=== PATIENT | male | born 1970 | race Caucasian/White ===

== ENCOUNTER → 2016-05-27 | Day surgery (SDC) | payer OTHER ==
[~2016-05-27] MED LIST: BUPIVACAINE/EPINEPHRINE 0.5% PF 30 ML VIAL ONE; CARA1TAB6 PO; DOXY100C PO; ESCI20TA PO; GABA600T PO; GLIP10TA6 PO; LACTATED RINGER'S 1000 ML INJ 1,000 ML ONE; LANTUS2P SQ; LOSA100T PO; MIDAZOLAM HCL 2 MG/2 ML VIAL ONE; MORPHINE SULFATE 4 MG/ML INJ ONE; PANT40TA3 PO; PROPOFOL 200 MG/20 ML AMP IV ONE; ROPI0.25 PO; VESI5TAB PO; VITA20003 PO; ceFAZolin 2 GM PREMIX 50 ML ONE; oxyCODONE/ACETAMINOPHEN 5 MG/325 MG TAB ONE
--- NOTE | 2016-05-27 14:20 | MP ---
cc: JAS ADAM M.D. DATE OF SURGERY: 05/27/2016 PREOPERATIVE DIAGNOSIS Right ankle medial dome talar lesion with cartilaginous delamination. PROCEDURE Right ankle extensive debridement and microfracture talar dome lesion. ANESTHESIA General. SURGEON Jas Adam MD INTERN RETAIL SURGEON STACI Alvares ESTIMATED BLOOD LOSS Minimum. DRAIN None. SPECIMEN Fragments discarded. COMPLICATIONS None known. INDICATIONS Dayday Peck is an adult male with persistent right ankle pain and disability. He has failed conservative management which reveals delaminated cartilage on the medial dome of the talus. The risks, benefits and alternatives to treatment were thoroughly discussed and detailed informed consent was obtained. The medical assistant ob gyn is Darrell Thomas, advanced registered nurse practitioner. His skill set was medically necessary. He assisted with of the limb through the operation holding of the arthroscope and the arthroscopic equipment and fine-tune the plantar flexion of the foot and his skill set was medically necessary for the performance of the operation. PROCEDURE The patient was brought to the operating room and placed under general anesthetic. Right lower extremity was draped and prepped in usual sterile fashion. IV antibiotics were given. Time-out was completed. We had a tourniquet just above the knee, which we did not use but used it as traction as the tourniquet mclean was placed tight. We prepped and draped the ankle in the usual sterile fashion. IV antibiotics were given. Time-out was completed. We used the Arthrex ankle distractor to distract the ankle. We injected Marcaine with epinephrine within the ankle joint and around the planned portals. Then proceeded with our inferolateral portal. It was necessary to use the small joint scope, this was introduced. There was some hypertrophic synovial tissue joint which was debrided. We used two different dara, one was a 3-0 shaver and one was a curved 4-0 shaver. We noted some fraying on the anterior edge of the distal tibia and this was smoothed and contoured and this gave visualization of the joint and the lateral gutter appeared normal. The medial gutter showed delaminated cartilage on the medial edge and in consistence with the MRI findings. A probe lifted the delaminated cartilage up and then we proceeded to use the shaver to remove a portion of this cartilage and then used the arthroscopic curette, angle curettes, regular curette, OB curette to remove delaminated cartilage and then shaved the bone and then used the microfracture awl and it looked slightly large, so then we used a 0.45 drill to make drill holes in the dome and we had firm edges of cartilage. We thoroughly irrigated out the ankle for removal of loose bodies. We took our final photographs of the lesion and photographed from the lateral side and then followed the drill holes, photographed on the medial side. Repeat diagnostic arthroscopy revealed no loose bodies. Arthroscopic equipment was removed. Marcaine had been injected about the portals. 4-0 Nylon suture was used. The patient was awoken and returned to the recovery room in stable condition. MD PRABHJOT Tavares/ELZBIETA /11:09 AM /2:19 PM
== END | disposition home or self-care (01) ==
LOC: ESDC 08:10
PROVIDERS: ATTEND Orthopaedic Surgery Sports Medicine
DX: M93.271 Osteochondritis dissecans, right ankle and joints of right foot (principal); M25.571 Pain in right ankle and joints of right foot; E11.9 Type 2 diabetes mellitus without complications; Z79.4 Long term (current) use of insulin
CPT/HCPCS: 01464; 29891; 82948; J0690; J2250; J2270; J3010; J7120

== ENCOUNTER 2016-12-08 16:55 | Emergency (ER) | payer OTHER ==
[~2016-12-08 16:55] MED LIST changes: -BUPIVACAINE/EPINEPHRINE 0.5% PF 30 ML VIAL ONE; -DOXY100C PO; -GLIP10TA6 PO; -LACTATED RINGER'S 1000 ML INJ 1,000 ML ONE; -MIDAZOLAM HCL 2 MG/2 ML VIAL ONE; -MORPHINE SULFATE 4 MG/ML INJ ONE; -PROPOFOL 200 MG/20 ML AMP IV ONE; -ceFAZolin 2 GM PREMIX 50 ML ONE; -oxyCODONE/ACETAMINOPHEN 5 MG/325 MG TAB ONE
[2016-12-08 16:58] VITALS: BP 147/84; PULSE 76; RESP 17; TEMP 98.4; O2SAT 98
[2016-12-08] MEDS ORDERED: SODIUM CHLOR 0.9% 1000 ML INJ 1,000 ML IV ONE (17:11)
[2016-12-08] MEDS ORDERED: LANTUS2P SQ (17:14)
--- NOTE | 2016-12-08 17:18 | PD ---
HPI Chief Complaint: Syncope/Near-Syncope Time Seen by Provider: 17:11 Travel History International Travel<30 days: No Contact w/Intl Traveler<30days: No Traveled to known affect area: No History of Present Illness HPI WHILE PATIENT WAS CELEBRATING HIS KIDS BIRTHDAY AT AN [employer] WHILE SITTING FELT LIGHTHEADED/DIZZY THEN PASSED OUT, PER AND KIDS NO SEIZURE ACTIVITY, UPON AWAKENING WITHIN SECONDS LATER, PT HAD WELSH. PCP:MAIK PEREZ PMHX: DM ,HTN, HI CHOL, SLEEP APNEA, RESTLESS LEG SYNDROME PSHX: COLON RESECTION WITH TAKEDOWN, GB, APPY, HERNIA PFSH Past Medical History High Cholesterol: Yes Diabetes: Yes Patient Takes Glucophage: No Diminished Hearing: No Hypertension: Yes Sleep Apnea: Yes Tetanus Vaccination: < 5 Years Influenza Vaccination: No Past Surgical History Abdominal Surgery: Yes (COLON RESECTION FOR DESTENTION AND POLYPS ) Appendectomy: Yes Cholecystectomy: Yes Social History Alcohol Use: No Tobacco Use: No Substance Use: No Allergies-Medications (Allergen,Severity, Reaction): Coded Allergies: No Known Allergies (Unverified , 12/08/16) Reported Meds & Prescriptions Reported Meds & Active Scripts Active Naproxen EC (Naproxen) 375 Mg Tabdr 375 Mg PO BID Flexeril (Cyclobenzaprine HCl) 10 Mg Tab 10 Mg PO TID Vesicare (Solifenacin) 5 Mg Tab 5 Mg PO DAILY Reported Lantus Inj (Insulin Glargine) 1,000 Unit/10 Ml Vial 52 Units SQ DAILY Pantoprazole (Pantoprazole Sodium) 40 Mg Tab 40 Mg PO DAILY Vitamin D (Cholecalciferol) 2,000 Unit Tab 2,000 Tab PO BID Escitalopram (Escitalopram Oxalate) 20 Mg Tab 20 Mg PO DAILY Ropinirole 0.25 Mg Tab 0.25 Mg PO ONCE Losartan (Losartan Potassium) 100 Mg Tab 100 Mg PO DAILY Lantus Inj (Insulin Glargine) 1,000 Unit/10 Ml Vial 25 Units SQ HS Gabapentin 600 Mg Tab 600 Mg PO BID Review of Systems Except as stated in HPI: all other systems reviewed are Neg HENT: Positive: Lightheadedness Neurologic: Positive: Dizziness Physical Exam Narrative GENERAL: SKIN: Warm and dry. HEAD: Atraumatic. Normocephalic. EYES: Pupils equal and round. No scleral icterus. No injection or drainage. ENT: No nasal bleeding or discharge. Mucous membranes pink and moist. NECK: Trachea midline. No JVD. CARDIOVASCULAR: Regular rate and rhythm. RESPIRATORY: No accessory muscle use. Clear to auscultation. Breath sounds equal bilaterally. GASTROINTESTINAL: Abdomen soft, non-tender, nondistended. MUSCULOSKELETAL: Extremities without clubbing, cyanosis, or edema. No obvious deformities. NEUROLOGICAL: Awake and alert. No obvious cranial nerve deficits. Motor grossly within normal limits. Five out of 5 muscle strength in the arms and legs. Normal speech. PSYCHIATRIC: Appropriate mood and affect; insight and judgment normal. Data Data Last Documented VS Vital Signs Date Time Temp Pulse Resp B/P (MAP) Pulse Ox O2 Delivery O2 Flow Rate FiO2 12/08/16 20:02 12/08/16 19:09 20 12/08/16 17:23 72 84 79 12/08/16 16:58 98.4 98 Orders Orders Electrocardiogram (12/08/16 17:11) Complete Blood Count With Diff (12/08/16 17:11) Comprehensive Metabolic Panel (12/08/16 17:11) B-Type Natriuretic Peptide (12/08/16 17:11) Ckmb (Isoenzyme) Profile (12/08/16 17:11) Troponin I (12/08/16 17:11) Act Partial Throm Time (Ptt) (12/08/16 17:11) Prothrombin Time / Inr (Pt) (12/08/16 17:11) Urinalysis - C+S If Indicated (12/08/16 17:11) Chest, Single Ap (12/08/16 17:11) Ct Brain W/O Iv Contrast(Rout) (12/08/16 17:11) Blood Glucose (12/08/16 17:11) Ecg Monitoring (12/08/16 17:11) Iv Access Insert/Monitor (12/08/16 17:11) Oximetry (12/08/16 17:11) Sodium Chlor 0.9% 1000 Ml Inj (Ns 1000 M (12/08/16 17:11) Orthostatic Vital Signs (12/08/16 17:11) Acetaminophen (Tylenol) (12/08/16 17:30) CKMB (12/08/16 17:30) CKMB% (12/08/16 17:30) Labs Laboratory Tests Test 12/08/16 17:30 White Blood Count 10.3 TH/MM3 Red Blood Count 4.49 MIL/MM3 Hemoglobin 13.7 GM/DL Hematocrit 40.2 % Mean Corpuscular Volume 89.4 FL Mean Corpuscular Hemoglobin 30.5 PG Mean Corpuscular Hemoglobin Concent 34.2 % Red Cell Distribution Width 13.3 % Platelet Count 255 TH/MM3 Mean Platelet Volume 8.1 FL Neutrophils (%) (Auto) 57.4 % Lymphocytes (%) (Auto) 30.7 % Monocytes (%) (Auto) 8.8 % Eosinophils (%) (Auto) 2.4 % Basophils (%) (Auto) 0.7 % Neutrophils # (Auto) 5.9 TH/MM3 Lymphocytes # (Auto) 3.2 TH/MM3 Monocytes # (Auto) 0.9 TH/MM3 Eosinophils # (Auto) 0.3 TH/MM3 Basophils # (Auto) 0.1 TH/MM3 CBC Comment DIFF FINAL Differential Comment Prothrombin Time 10.8 SEC Prothromb Time International Ratio 1.0 RATIO Activated Partial Thromboplast Time 25.4 SEC Blood Urea Nitrogen 12 MG/DL Creatinine 1.29 MG/DL Random Glucose 113 MG/DL Total Protein 7.6 GM/DL Albumin 3.7 GM/DL Calcium Level 8.4 MG/DL Alkaline Phosphatase 69 U/L Aspartate Amino Transf (AST/SGOT) 55 U/L Alanine Aminotransferase (ALT/SGPT) 79 U/L Total Bilirubin 0.4 MG/DL Sodium Level 139 MEQ/L Potassium Level 4.0 MEQ/L Chloride Level 105 MEQ/L Carbon Dioxide Level 27.8 MEQ/L Anion Gap 6 MEQ/L Estimat Glomerular Filtration Rate 59 ML/MIN Total Creatine Kinase 146 U/L Creatine Kinase MB 0.6 NG/ML Troponin I LESS THAN 0.02 NG/ML B-Type Natriuretic Peptide 10 PG/ML MDM Medical Decision Making Medical Screen Exam Complete: Yes Emergency Medical Condition: Yes Medical Record Reviewed: Yes Interpretation(s) NSR 76, MOTION ARTIFACT BUT NO STEMI PATTERN NOTED Differential Diagnosis ELECTROLYTE ABNL V DEHYDRATION V ANEMIA V STEMI V ICH Narrative Course PATINET HAD NEG ORTHOS, NO E/O ANEMIA OR DEHYDRATION. ALSO EKG DID NOT SHOW ANY STEMI, BLOODWORK SHOWED NO E/O NONSTEMI, ALSO CT NEG FOR ICH. PATIENT LIKELY HAD POSSIBLE VAGAL SYNCOPE, ADVISED TO GET OUTPATIENT EVALUATION FOR FURTHER RISK STRATIFICATION Diagnosis Primary Impression: SYNCOPE Patient Instructions: General Instructions, Syncope (ED) Additional Instructions: [facility] UP [facility] FOR [facility]THER [facility]IS[facility]ATIFICATION INCLUDING ECHO, STRESS TEST, REFERRAL TO NEUROLOGIST AND SPEECH LANGUAGE ASSISTANT [facility] Scripts Naproxen DR (Naproxen EC) 375 Mg Tabdr 375 MG PO BID, #20 TAB 0 Refills Prov: Homar Tolbert MD 12/08/16 Cyclobenzaprine (Flexeril) 10 Mg Tab 10 MG PO TID for Muscle Spasm, #30 TAB 0 Refills Prov: Homar Tolbert MD 12/08/16 Disposition: 01 DISCHARGE HOME Condition: Stable Homar Tolbert MD Dec 08, 2016 17:18
[2016-12-08 17:23] VITALS: BP_SYST 129; BP_SYST 137; BP_SYST 139; BP_DIAS 77; BP_DIAS 83; BP_DIAS 85; RESP 16; RESP 20
[2016-12-08] MEDS ORDERED: ACETAMINOPHEN 325 MG TAB PO ONE (17:30)
[2016-12-08 17:38] LABS: AUTOMATED NEUTROPHIL # 5.9 TH/MM3 (1.8-7.7); BASOPHIL # 0.1 TH/MM3 (0-0.2); BASOPHIL % 0.7 % (0.0-2.0); EOSINOPHIL # 0.3 TH/MM3 (0-0.4); EOSINOPHIL % 2.4 % (0.0-4.0); HEMATOCRIT 40.2 % (39.0-51.0); HEMO FLAGS DIFF FINAL; LYMPH % 30.7 % (9.0-44.0); LYMPHOCYTE # 3.2 TH/MM3 (1.0-4.8); MEAN CELL VOLUME 89.4 FL (80.0-100.0); MEAN CORPUSCULAR HEMOGLOBIN 30.5 PG (27.0-34.0); MEAN CORPUSCULAR HGB CONC 34.2 % (32.0-36.0); MONO % 8.8 % (0.0-8.0); NEUT % 57.4 % (16.0-70.0); PLATELET COUNT 255 TH/MM3 (150-450); RED BLOOD COUNT 4.49 MIL/MM3 (4.50-5.90); RED CELL DISTRIBUTION WIDTH 13.3 % (11.6-17.2); WHITE BLOOD COUNT 10.3 TH/MM3 (4.0-11.0)
[2016-12-08 17:48] LABS: APTT (PATIENT) 25.4 SEC (24.3-30.1); PROTHROMBIN TIME - PATIENT 10.8 SEC (9.8-11.6)
[2016-12-08] MEDS ORDERED: CYCL1TAB29 PO (17:50)
[2016-12-08] MEDS ORDERED: NAPR-239 PO (17:50)
[2016-12-08 17:51] LABS: ALT (GPT) 79 U/L (12-78)
--- NOTE | 2016-12-08 17:55 | RADRPT ---
EXAM DATE/TIME: 12/08/2016 17:29 [facility] COMPARISON: No previous studies available for comparison. INDICATIONS : Syncope today with chest pressure. MEDICAL HISTORY : Hypertension. Diabetes mellitus type II. SURGICAL HISTORY : None. ENCOUNTER: Initial ACUITY: 1 day PAIN SCORE: 5/10 LOCATION: Bilateral chest FINDINGS: A single view of the chest demonstrates the lungs to be symmetrically aerated without evidence of mas s, infiltrate or effusion. The cardiomediastinal contours are unremarkable. Osseous structures are intact. CONCLUSION: No acute disease. Varghese Roberto MD FACR on December 08, 2016 at 17:53 Board Certified Radiologist. This report was verified electronically.
--- NOTE | 2016-12-08 17:56 | RADRPT ---
EXAM DATE/TIME: 12/08/2016 17:37 [facility] COMPARISON: No previous studies available for comparison. INDICATIONS : Syncopal episode, headache. RADIATION DOSE: 56.35 CTDIvol (mGy) MEDICAL HISTORY : Diabetes mellitus type 2. Hypertension. SURGICAL HISTORY : None. ENCOUNTER: Initial ACUITY: 1 day PAIN SCALE: 5/10 LOCATION: Bilateral cranial TECHNIQUE: Multiple contiguous axial images were obtained of the head. Using automated exposure control and adj ustment of the mA and/or kV according to patient size, radiation dose was kept as low as reasonably a chievable to obtain optimal diagnostic quality images. DICOM format image data is available electro nically for review and comparison. FINDINGS: CEREBRUM: The ventricles are normal for age. No evidence of midline shift, mass lesion, hemorrhage or acute in farction. No extra-axial fluid collections are seen. POSTERIOR FOSSA: The cerebellum and brainstem are intact. The 4th ventricle is midline. The cerebellopontine angle i s unremarkable. EXTRACRANIAL: The visualized portion of the orbits is intact. SKULL: The calvaria is intact. No evidence of skull fracture. CONCLUSION: Negative for acute process Varghese Roberto MD FACR on December 08, 2016 at 17:53 Board Certified Radiologist. This report was verified electronically.
[2016-12-08 18:20] LABS: ALKALINE PHOSPHATASE 69 U/L (45-117); ANION GAP 6 MEQ/L (5-15); AST (GOT) 55 U/L (15-37); BICARBONATE 27.8 MEQ/L (21.0-32.0); BLOOD UREA NITROGEN 12 MG/DL (7-18); CHLORIDE 105 MEQ/L (98-107); CREATINE KINASE 146 U/L (39-308); GLOMERULAR FILTRATION RATE 59 ML/MIN (>89); SODIUM (NA) 139 MEQ/L (136-145); TOTAL BILIRUBIN ADULT 0.4 MG/DL (0.2-1.0)
[2016-12-08 18:32] LABS: CKMB 0.6 NG/ML (0.5-3.6)
[2016-12-08 19:09] VITALS: RESP 20
--- NOTE | 2016-12-09 20:13 | EKG ---
Date Performed: 12/08/2016 Time Performed: 17:10:31 PTAGE: 46 years EKG: Sinus rhythm NORMAL ECG NO PREVIOUS TRACING DOCTOR: Margareth Avila Interpretating Date/Time 12/09/2016 20:09:02
== END 2016-12-08 20:11 | disposition home or self-care (01) ==
LOC: NEPE 16:55
DX: R55 Syncope and collapse (principal); I10 Essential (primary) hypertension; E11.9 Type 2 diabetes mellitus without complications; E78.00 Pure hypercholesterolemia, unspecified; G47.30 Sleep apnea, unspecified; G25.81 Restless legs syndrome
CPT/HCPCS: 70450; 71010; 80053; 82550; 82552; 83880; 84484; 85025; 85610; 85730; 93005; 96360; 99285; J7030

== ENCOUNTER → 2017-03-24 | Day surgery (SDC) | payer OTHER ==
[~2017-03-24] VITALS: Ht 175.3 cm; Wt 123.2 kg
[~2017-03-24] MED LIST changes: +*morphine SULFATE 8 MG/ML PERIprocedure ONLY ONE; +ACETAMINOPHEN 1000 MG/100 ML 100 ML IV ONE; +ARTIFICIAL TEARS OPTH OINT 3.5 APPLIC/3.5 GM TUBO ONE; +BACITRACIN TOP OINT 15 GM TUBE ONE; -CARA1TAB6 PO; +CEPH-459 PO; +CHLORHEXIDINE GLUCONATE 2 % 1 PACK (2 CLOTHS) TOPICAL PRN; +DEXAMETHASONE SOD PHOS 4 MG/ML VIAL IV ONE; +DO NOT ADM ANY ANTICOAGULANT DRUGS PRN; -GABA600T PO; +GLYCOPYRROLATE 1 MG/5 ML SYRINGE IV PUSH ONE; +INSULIN HUMAN REGULAR 1,000 UNITS/10 ML VIAL SQ PRN; +LACTATED RINGER'S 1000 ML INJ 1,000 ML IV ONE; +LACTATED RINGER'S 1000 ML IV PRN; +LIDOCAINE HCL 1% PF 5 ML SYRINGE OTHER ONE; +METOPROLOL TARTRATE 25 MG TAB PO PRN; +MIDAZOLAM HCL 2 MG/2 ML VIAL ONE; +ONDANSETRON HCL 4 MG/2 ML VIAL IV ONE; +ONDANSETRON HCL 4 MG/2 ML VIAL IV PUSH PRN; +OXYC-392 PO; +PHENYLEPH/NS 1000 MCG/10 ML SYR IV ONE; +PHENYLEPHRINE HCL 10 MG/ML VIAL IV ONE; +POVIDONE IODINE 5% (ANTISEPSIS KIT) 4 APPLICATIONS EACH NARE PRN; +PROPOFOL 200 MG/20 ML AMP IV ONE; +ROCURONIUM INJ 50 MG/5 ML SYRINGE IV PUSH ONE; -ROPI0.25 PO; +SODIUM CHLORID 0.9% 500 ML IV PRN; +SUGAMMADEX SODIUM 200 MG/2 ML VIAL IV PUSH ONE; -VESI5TAB PO; +VESI5TAB2 PO; +ceFAZolin 2 GM PREMIX 50 ML ONE; +ceFAZolin INJ 1,000 MG VIAL IV ONE; +ePHEDrine/NS 25 MG/5 ML SYRINGE IV ONE
[2017-03-24 07:26] LABS: AUTOMATED NEUTROPHIL # 5.3 TH/MM3 (1.8-7.7); BASOPHIL # 0.1 TH/MM3 (0-0.2); EOSINOPHIL # 0.2 TH/MM3 (0-0.4); EOSINOPHIL % 2.3 % (0.0-4.0); HEMATOCRIT 43.8 % (39.0-51.0); HEMO FLAGS DIFF FINAL; LYMPH % 34.7 % (9.0-44.0); LYMPHOCYTE # 3.4 TH/MM3 (1.0-4.8); MEAN CELL VOLUME 88.7 FL (80.0-100.0); MEAN CORPUSCULAR HEMOGLOBIN 30.4 PG (27.0-34.0); MEAN CORPUSCULAR HGB CONC 34.2 % (32.0-36.0); MONO % 8.7 % (0.0-8.0); NEUT % 53.3 % (16.0-70.0); PLATELET COUNT 252 TH/MM3 (150-450); RED BLOOD COUNT 4.94 MIL/MM3 (4.50-5.90); RED CELL DISTRIBUTION WIDTH 13.9 % (11.6-17.2); WHITE BLOOD COUNT 9.9 TH/MM3 (4.0-11.0)
--- NOTE | 2017-03-24 10:02 | PD.OP ---
Operative Report Date of Surgery: Mar 24, 2017 Preoperative Diagnosis: (1) Epididymitis, bilateral Postoperative Diagnosis: (1) Epididymitis, bilateral Procedure: Bilateral epididymectomy Anesthesia: General Surgeon: Tomasz Gill Lens Engraver(s): None Operation and Findings: Indication for procedure: Case of a pleasant 46-year-old gentleman with chronic bilateral epididymal pain related to chronic epididymitis who presents now for a bilateral epididymectomy. Operative procedure in detail: Patient was brought to the operating suite and placed supine on the OR table. He was then placed on general anesthesia. He was then prepped and draped in normal sterile fashion. After an appropriate timeout was undertaken I proceeded with making a small transverse left scrotal incision at the mid scrotal level. The incision length was approximately 2-1/2 cm and made with a #15 blade. The incision was extended down layer by layer to expose the underlying testicle. The testicle was next delivered through the wound and the epididymis was sharply dissected off of the testicle and removed. Hemostasis was accomplished with the cautery. The specimen was sent off to pathology. The left scrotal wound was closed in 2 layers utilizing 2. 0 Vicryl for the deep layer and 2. 0 chromic for the scrotal skin edges placed in interrupted fashion In similar fashion the contralateral side was accomplished. Neosporin ointment was then placed over the incision sites and wounds covered with fluff gauze held in place with a scrotal supporter. The patient tolerated the procedure without complications and was transferred to the PACU in satisfactory condition. Tomasz Gill MD Mar 24, 2017 10:02
[2017-03-24 12:58] VITALS: BP 101/69; PULSE 86; RESP 16; TEMP 97.3; O2SAT 98
== END | disposition home or self-care (01) ==
LOC: HSDC 05:53
PROVIDERS: ATTEND Urology
DX: N45.1 Epididymitis (principal); Z01.818 Encounter for other preprocedural examination; E11.9 Type 2 diabetes mellitus without complications; Z79.4 Long term (current) use of insulin
CPT/HCPCS: 00920; 54861; 82948; 85025; 88305; J0131; J0690; J1100; J1815; J2250; J2270; J2370; J2405; J3010; J7120

== ENCOUNTER 2017-04-30 20:23 | Emergency (ER) | payer OTHER ==
[~2017-04-30] VITALS: Ht 175.3 cm; Wt 125.0 kg
[~2017-04-30 20:23] MED LIST changes: -*morphine SULFATE 8 MG/ML PERIprocedure ONLY ONE; -ACETAMINOPHEN 1000 MG/100 ML 100 ML IV ONE; -ARTIFICIAL TEARS OPTH OINT 3.5 APPLIC/3.5 GM TUBO ONE; -BACITRACIN TOP OINT 15 GM TUBE ONE; -CEPH-459 PO; -CHLORHEXIDINE GLUCONATE 2 % 1 PACK (2 CLOTHS) TOPICAL PRN; -DEXAMETHASONE SOD PHOS 4 MG/ML VIAL IV ONE; -DO NOT ADM ANY ANTICOAGULANT DRUGS PRN; -GLYCOPYRROLATE 1 MG/5 ML SYRINGE IV PUSH ONE; -INSULIN HUMAN REGULAR 1,000 UNITS/10 ML VIAL SQ PRN; -LACTATED RINGER'S 1000 ML INJ 1,000 ML IV ONE; -LACTATED RINGER'S 1000 ML IV PRN; -LIDOCAINE HCL 1% PF 5 ML SYRINGE OTHER ONE; -METOPROLOL TARTRATE 25 MG TAB PO PRN; -MIDAZOLAM HCL 2 MG/2 ML VIAL ONE; -ONDANSETRON HCL 4 MG/2 ML VIAL IV ONE; -ONDANSETRON HCL 4 MG/2 ML VIAL IV PUSH PRN; -OXYC-392 PO; -PHENYLEPH/NS 1000 MCG/10 ML SYR IV ONE; -PHENYLEPHRINE HCL 10 MG/ML VIAL IV ONE; -POVIDONE IODINE 5% (ANTISEPSIS KIT) 4 APPLICATIONS EACH NARE PRN; -PROPOFOL 200 MG/20 ML AMP IV ONE; -ROCURONIUM INJ 50 MG/5 ML SYRINGE IV PUSH ONE; -SODIUM CHLORID 0.9% 500 ML IV PRN; -SUGAMMADEX SODIUM 200 MG/2 ML VIAL IV PUSH ONE; -ceFAZolin 2 GM PREMIX 50 ML ONE; -ceFAZolin INJ 1,000 MG VIAL IV ONE; -ePHEDrine/NS 25 MG/5 ML SYRINGE IV ONE
[2017-04-30 20:25] VITALS: BP 129/75; PULSE 118; RESP 20; TEMP 98.1; O2SAT 95
[2017-04-30 21:15] VITALS: BP 135/75; PULSE 106; RESP 20; O2SAT 97
[2017-04-30] MEDS ORDERED: SODIUM CHLORIDE 0.9% FLUSH 10 ML FLUSH IVF PRN (21:30)
[2017-04-30] MEDS ORDERED: METOCLOPRAMIDE HCL 10 MG/2 ML VIAL IV PUSH ONE (21:30)
[2017-04-30 22:25] LABS: AUTOMATED NEUTROPHIL # 5.4 TH/MM3 (1.8-7.7); BASOPHIL # 0.1 TH/MM3 (0-0.2); BASOPHIL % 0.5 % (0.0-2.0); EOSINOPHIL # 0.3 TH/MM3 (0-0.4); EOSINOPHIL % 2.8 % (0.0-4.0); HEMATOCRIT 41.3 % (39.0-51.0); HEMOGLOBIN 14.2 GM/DL (13.0-17.0); LYMPH % 34.1 % (9.0-44.0); LYMPHOCYTE # 3.3 TH/MM3 (1.0-4.8); MEAN CELL VOLUME 88.2 FL (80.0-100.0); MEAN CORPUSCULAR HEMOGLOBIN 30.3 PG (27.0-34.0); MEAN CORPUSCULAR HGB CONC 34.3 % (32.0-36.0); MEAN PLATELET VOLUME 7.4 FL (7.0-11.0); MONO % 7.6 % (0.0-8.0); MONOCYTE # 0.7 TH/MM3 (0-0.9); PLATELET COUNT 291 TH/MM3 (150-450); RED BLOOD COUNT 4.69 MIL/MM3 (4.50-5.90); RED CELL DISTRIBUTION WIDTH 13.4 % (11.6-17.2); WHITE BLOOD COUNT 9.8 TH/MM3 (4.0-11.0)
[2017-04-30 22:28] LABS: BILIRUBIN, URINE NEG (NEG); BLOOD, URINE NEG (NEG); GLUCOSE,URINE 1000 mg/dL (NEG); KETONE, URINE TRACE mg/dL (NEG); MUCUS URINE FEW /lpf (OCC); NITRITE,URINE NEG (NEG); PH, URINE 5.5 (5.0-8.5); SQUAMOUS EPITHELIAL CELL URINE <1 /hpf (0-5); URINE COLOR YELLOW (YELLW/STRAW); URINE LEUKOCYTE ESTERASE NEG (NEG)
[2017-04-30 22:35] LABS: ALBUMIN 4.2 GM/DL (3.4-5.0); ALT (GPT) 73 U/L (12-78); AST (GOT) 52 U/L (15-37); BICARBONATE 26.9 MEQ/L (21.0-32.0); BLOOD UREA NITROGEN 11 MG/DL (7-18); CALCIUM 9.2 MG/DL (8.5-10.1); CHLORIDE 99 MEQ/L (98-107); CREATININE 1.18 MG/DL (0.60-1.30); GLOMERULAR FILTRATION RATE 66 ML/MIN (>89); GLUCOSE,RANDOM 311 MG/DL (74-106); MAGNESIUM 2.2 MG/DL (1.5-2.5); SODIUM (NA) 135 MEQ/L (136-145)
[2017-04-30 22:39] LABS: ALKALINE PHOSPHATASE 70 U/L (45-117); TOTAL BILIRUBIN ADULT 0.2 MG/DL (0.2-1.0); TOTAL PROTEIN 8.2 GM/DL (6.4-8.2); TROPONIN I LESS THAN 0.02 NG/ML (0.02-0.05)
[2017-04-30 22:47] LABS: D-DIMER 0.32 MG/L FEU (0.00-0.50)
--- NOTE | 2017-04-30 22:48 | RADRPT ---
EXAM DATE/TIME: 04/30/2017 22:17 [facility] COMPARISON: CT BRAIN W/O CONTRAST, December 08, 2016, 17:37. INDICATIONS : Patient complains of headache and dizziness. RADIATION DOSE: 45.37 CTDIvol (mGy) MEDICAL HISTORY : Hypertension. SURGICAL HISTORY : None. ENCOUNTER: Initial ACUITY: 1 day PAIN SCALE: 5/10 LOCATION: cranial TECHNIQUE: Multiple contiguous axial images were obtained of the head. Using automated exposure control and adj ustment of the mA and/or kV according to patient size, radiation dose was kept as low as reasonably a chievable to obtain optimal diagnostic quality images. DICOM format image data is available electro nically for review and comparison. FINDINGS: CEREBRUM: The ventricles are normal for age. No evidence of midline shift, mass lesion, hemorrhage or acute in farction. No extra-axial fluid collections are seen. POSTERIOR FOSSA: The cerebellum and brainstem are intact. The 4th ventricle is midline. The cerebellopontine angle i s unremarkable. EXTRACRANIAL: The visualized portion of the orbits is intact. SKULL: The calvaria is intact. No evidence of skull fracture. CONCLUSION: Normal examination. Theodore Khan MD on April 30, 2017 at 22:44 Board Certified Radiologist. This report was verified electronically.
[2017-04-30] MEDS ORDERED: ROPI0.25 PO (22:49)
[2017-04-30] MEDS ORDERED: PRAV10TA PO (22:49)
--- NOTE | 2017-04-30 22:59 | RADRPT ---
EXAM DATE/TIME: 04/30/2017 22:30 [facility] COMPARISON: No previous studies available for comparison. INDICATIONS : Chest pain, irregular heart rate starting today MEDICAL HISTORY : Diabetes mellitus type 2. Hypertension SURGICAL HISTORY : None. ENCOUNTER: Initial ACUITY: 1 day PAIN SCORE: 5/10 LOCATION: Bilateral chest FINDINGS: A single view of the chest demonstrates the lungs to be symmetrically aerated without evidence of mas s, infiltrate or effusion. Minimal basilar atelectasis. The cardiomediastinal contours are unremarkab le. Osseous structures are intact. CONCLUSION: 1. Minimal basilar atelectasis. No consolidation or effusion. Theodore Khan MD on April 30, 2017 at 22:56 Board Certified Radiologist. This report was verified electronically.
[2017-04-30 23:20] VITALS: BP 131/70; PULSE 86; RESP 18; O2SAT 98
--- NOTE | 2017-04-30 23:50 | PD ---
HPI . Elevated blood sugar Chief Complaint: Diabetic Time Seen by Provider: 21:18 Travel History International Travel<30 days: No Contact w/Intl Traveler<30days: No Traveled to known affect area: No History of Present Illness HPI 46-year-old male presents with feeling lightheaded dizzy, shaky earlier similar to prior exacerbation of hypoglycemia. Patient is a known diabetic and has had several instances in the past similar chest tonight. Patient ate a few oranges has some sugary substances, notes improvement in his symptoms, patient notes persistent right posterior headache and nausea. Patient does not normally have headaches. Denies visual changes, stiff neck, rashes, fever, focal weakness numbness or tingling. Patient has had no traumatic head injury to explain headache. Denies auditory changes. PFSH Past Medical History Narrative Medical Past medical history reviewed Cancer: No Cardiovascular Problems: Yes (HTN, hyperlipidemia) High Cholesterol: Yes Diabetes: Yes Patient Takes Glucophage: No Diminished Hearing: No Endocrine: Yes Gastrointestinal Disorders: Yes (BARRETTS ESOPHAGOUS, FATTY LIVER) Genitourinary: No Hepatitis: No Hiatal Hernia: Yes Hypertension: Yes Immune Disorder: No Musculoskeletal: Yes (OA) Neurologic: No Psychiatric: No Reproductive: Yes (HYDROCELE) Respiratory: Yes (SLEEP APNEA, CPAP) Sleep Apnea: Yes Thyroid Disease: No Tetanus Vaccination: > 5 Years Influenza Vaccination: Yes Past Surgical History Abdominal Surgery: Yes (COLON RESECTION, ABBIE, APPY, TL INGUINAL HERNIA REPAIR, VENTRAL HERNIA ) AICD: No Appendectomy: Yes Body Medical Devices: HERNIA MESH Cardiac Surgery: No Cholecystectomy: Yes Ear Surgery: No Endocrine Surgery: No Eye Surgery: No Genitourinary Surgery: No Joint Replacement: No Oral Surgery: Yes (TONSILLECTOMY) Pacemaker: No Thoracic Surgery: No Other Surgery: Yes Social History Alcohol Use: No Tobacco Use: No Substance Use: No Allergies-Medications (Allergen,Severity, Reaction): Coded Allergies: No Known Allergies (Unverified Allergy, Unknown, 04/17/17) Reported Meds & Prescriptions Reported Meds & Active Scripts Active Vesicare (Solifenacin) 5 Mg Tab 5 Mg PO DAILY Reported Ropinirole 0.25 Mg Tab 0.25 Mg PO HS Pravastatin 10 Mg Tab 10 Mg PO DAILY Lantus Inj (Insulin Glargine) 1,000 Unit/10 Ml Vial 52 Units SQ DAILY Pantoprazole (Pantoprazole Sodium) 40 Mg Tab 40 Mg PO DAILY Vitamin D (Cholecalciferol) 2,000 Unit Tab 2,000 Units PO BID Escitalopram (Escitalopram Oxalate) 20 Mg Tab 20 Mg PO DAILY Losartan (Losartan Potassium) 100 Mg Tab 100 Mg PO DAILY Lantus Inj (Insulin Glargine) 1,000 Unit/10 Ml Vial 25 Units SQ HS Narrative Medication Allergies and medications reviewed Review of Systems Except as stated in HPI: all other systems reviewed are Neg General / Constitutional: No: Fever Eyes: No: Visual changes HENT: Positive: Headaches, No: Lightheadedness, Neck Stiffness, Neck Pain Cardiovascular: No: Chest Pain or Discomfort Respiratory: No: Shortness of Breath Gastrointestinal: No: Abdominal Pain Genitourinary: No: Dysuria Musculoskeletal: No: Pain Skin: No Rash Neurologic: No: Weakness Psychiatric: No: Depression Endocrine: No: Polydipsia Hematologic/Lymphatic: No: Easy Bruising Physical Exam Narrative GENERAL: Awake and alert, oriented 3, no acute distress. Vital signs afebrile normal and stable SKIN: Warm and dry. Color is normal no diaphoresis cyanosis or pallor HEAD: Atraumatic. Normocephalic. EYES: Pupils equal and round. No scleral icterus. No injection or drainage. ENT: No nasal bleeding or discharge. Mucous membranes pink and moist. NECK: Trachea midline. No JVD. Supple nontender full range of motion CARDIOVASCULAR: Regular rate and rhythm. S1-S2 no murmurs rubs gallops RESPIRATORY: No accessory muscle use. Clear to auscultation. Breath sounds equal bilaterally. GASTROINTESTINAL: Abdomen soft, non-tender, nondistended. Hepatic and splenic margins not palpable. MUSCULOSKELETAL: Extremities without clubbing, cyanosis, or edema. No obvious deformities. NEUROLOGICAL: Awake and alert. No obvious cranial nerve deficits. Motor grossly within normal limits. Five out of 5 muscle strength in the arms and legs. Normal speech. PSYCHIATRIC: Appropriate mood and affect; insight and judgment normal. Data Data Last Documented VS Vital Signs Date Time Temp Pulse Resp B/P (MAP) Pulse Ox O2 Delivery O2 Flow Rate FiO2 04/30/17 23:20 86 18 131/70 (90) 98 Room Air 04/30/17 20:25 98.1 Orders Orders Electrocardiogram (04/30/17 20:33) Complete Blood Count With Diff (04/30/17 20:33) Comprehensive Metabolic Panel (04/30/17 20:33) Magnesium (Mg) (04/30/17 20:33) Ckmb (Isoenzyme) Profile (04/30/17 20:33) Troponin I (04/30/17 20:33) Urinalysis - C+S If Indicated (04/30/17 20:33) Electrocardiogram (04/30/17 21:25) B-Type Natriuretic Peptide (04/30/17 21:25) D-Dimer (04/30/17 21:25) Prothrombin Time / Inr (Pt) (04/30/17 21:25) Act Partial Throm Time (Ptt) (04/30/17 21:25) Chest, Single Ap (04/30/17 21:25) Ecg Monitoring (04/30/17 21:25) Iv Access Insert/Monitor (04/30/17 21:25) Oximetry (04/30/17 21:25) Sodium Chloride 0.9% Flush (Ns Flush) (04/30/17 21:30) Metoclopramide Inj (Reglan Inj) (04/30/17 21:30) Ct Brain W/O Iv Contrast(Rout) (04/30/17 ) CKMB (04/30/17 22:00) CKMB% (04/30/17 22:00) Labs Laboratory Tests Test 04/30/17 22:00 White Blood Count 9.8 TH/MM3 Red Blood Count 4.69 MIL/MM3 Hemoglobin 14.2 GM/DL Hematocrit 41.3 % Mean Corpuscular Volume 88.2 FL Mean Corpuscular Hemoglobin 30.3 PG Mean Corpuscular Hemoglobin Concent 34.3 % Red Cell Distribution Width 13.4 % Platelet Count 291 TH/MM3 Mean Platelet Volume 7.4 FL Neutrophils (%) (Auto) 55.0 % Lymphocytes (%) (Auto) 34.1 % Monocytes (%) (Auto) 7.6 % Eosinophils (%) (Auto) 2.8 % Basophils (%) (Auto) 0.5 % Neutrophils # (Auto) 5.4 TH/MM3 Lymphocytes # (Auto) 3.3 TH/MM3 Monocytes # (Auto) 0.7 TH/MM3 Eosinophils # (Auto) 0.3 TH/MM3 Basophils # (Auto) 0.1 TH/MM3 CBC Comment DIFF FINAL Differential Comment Prothrombin Time 10.0 SEC Prothromb Time International Ratio 1.0 RATIO Activated Partial Thromboplast Time 23.6 SEC D-Dimer Quantitative (PE/DVT) 0.32 MG/L FEU Urine Color YELLOW Urine Turbidity CLEAR Urine pH 5.5 Urine Specific [place] 1.026 Urine Protein TRACE mg/dL Urine Glucose (UA) 1000 mg/dL Urine Ketones TRACE mg/dL Urine Occult Blood NEG Urine Nitrite NEG Urine Bilirubin NEG Urine Urobilinogen 2.0 MG/DL Urine Leukocyte Esterase NEG Urine WBC LESS THAN 1 /hpf Urine Squamous Epithelial Cells <1 /hpf Urine Mucus FEW /lpf Microscopic Urinalysis Comment CULT NOT INDICATED Blood Urea Nitrogen 11 MG/DL Creatinine 1.18 MG/DL Random Glucose 311 MG/DL Total Protein 8.2 GM/DL Albumin 4.2 GM/DL Calcium Level 9.2 MG/DL Magnesium Level 2.2 MG/DL Alkaline Phosphatase 70 U/L Aspartate Amino Transf (AST/SGOT) 52 U/L Alanine Aminotransferase (ALT/SGPT) 73 U/L Total Bilirubin 0.2 MG/DL Sodium Level 135 MEQ/L Potassium Level 3.8 MEQ/L Chloride Level 99 MEQ/L Carbon Dioxide Level 26.9 MEQ/L Anion Gap 9 MEQ/L Estimat Glomerular Filtration Rate 66 ML/MIN Total Creatine Kinase 147 U/L Creatine Kinase MB 0.6 NG/ML Troponin I LESS THAN 0.02 NG/ML B-Type Natriuretic Peptide LESS THAN 2 PG/ML MDM Medical Decision Making Medical Screen Exam Complete: Yes Emergency Medical Condition: Yes Medical Record Reviewed: Yes Differential Diagnosis Hypoglycemia, hyperglycemia, headache Narrative Course Patient's hyperglycemia possible secondary to patient's treatment of his hypoglycemia earlier. Blood sugar and normalizing on its own without treatment. CT head negative as per radiology. Chest x-ray normal. Laboratory examinations with the exception of patient's hyperglycemia which is improving, otherwise normal. Since headache symptoms as well as shakiness etc. all improved. Patient feels comfortable with discharge Diagnosis Primary Impression: Hyperglycemia Patient Instructions: Diabetic Hyperglycemia (ED), General Instructions Departure Forms: Tests/Procedures Additional Instructions: Care is discussed. Follow-up with your doctor. Return for worsening Disposition: 01 DISCHARGE HOME Condition: Stable Tian Farley MD Apr 30, 2017 23:50
--- NOTE | 2017-05-01 23:51 | EKG ---
Date Performed: 04/30/2017 Time Performed: 22:13:02 PTAGE: 46 years EKG: SINUS TACHYCARDIA NONSPECIFIC T-WAVE ABNORMALITY ABNORMAL RHYTHM ECG PREVIOUS TRACING : 12/08/2016 17.10 Since the prior tracing, there has been no significant gonzalez DOCTOR: Blair Chew Interpretating Date/Time 05/01/2017 23:49:45
== END 2017-05-01 00:09 | disposition home or self-care (01) ==
LOC: NEPE 20:23
DX: E11.65 Type 2 diabetes mellitus with hyperglycemia (principal); R00.0 Tachycardia, unspecified; R94.31 Abnormal electrocardiogram [ECG] [EKG]; I10 Essential (primary) hypertension; E78.5 Hyperlipidemia, unspecified; E78.00 Pure hypercholesterolemia, unspecified; K76.0 Fatty (change of) liver, not elsewhere classified; G47.30 Sleep apnea, unspecified; Z79.4 Long term (current) use of insulin
CPT/HCPCS: 70450; 71045; 80053; 81001; 82550; 82552; 83735; 83880; 84484; 85025; 85379; 85610; 85730; 93005; 96374; 99285; J2765

== ENCOUNTER 2017-07-27 16:44 | Observation (INO) | payer OTHER ==
[~2017-07-27] VITALS: Ht 175.3 cm; Wt 124.0 kg
[~2017-07-27 16:44] MED LIST changes: +PRAV10TA PO; +ROPI0.25 PO
[2017-07-27 16:56] VITALS: BP 126/61; PULSE 78; RESP 22; TEMP 97.8; O2SAT 97
[2017-07-27] MEDS ORDERED: LANTUS2P SQ (17:10)
[2017-07-27 17:11] VITALS: BP 134/92; PULSE 81; RESP 18; O2SAT 99
[2017-07-27 17:23] VITALS: RESP 16; O2SAT 99
--- NOTE | 2017-07-27 17:27 | PD ---
HPI Chief Complaint: Syncope/Near-Syncope Time Seen by Provider: 17:01 Travel History International Travel<30 days: No Contact w/Intl Traveler<30days: No Traveled to known affect area: No History of Present Illness HPI Patient is a 46-year-old male presents emergency department for evaluation of syncopal episode 2. Patient is a history of diabetes, he states he was at a store shopping with his today when suddenly he felt like the room was spinning he sat down for second and next thing he knows his was standing over him trying to wake him up. After motor to he felt better and then they went to continue shopping and the same thing happened to him again at a different store. Patient states is never happened to him before, he states the only symptom he has now some mild chest discomfort including tightness. He denies any shortness of breath nausea vomiting abdominal pain. Denies any fevers cough or congestion. He states symptoms started today in earlier today he felt just fine, denies hypoglycemia, symptoms moderate, recurrent, started today, associated signs and symptoms in context as above. PFSH Past Medical History Cancer: No Cardiovascular Problems: Yes High Cholesterol: Yes Diabetes: Yes Patient Takes Glucophage: Yes Diminished Hearing: No Endocrine: Yes Gastrointestinal Disorders: Yes (BARRETTS ESOPHAGOUS, FATTY LIVER) Genitourinary: No Hepatitis: No Hiatal Hernia: Yes Hypertension: Yes Immune Disorder: No Musculoskeletal: Yes (OA) Neurologic: No Psychiatric: No Reproductive: Yes (HYDROCELE) Respiratory: Yes (SLEEP APNEA, CPAP) Sleep Apnea: Yes (CPAP) Thyroid Disease: No Tetanus Vaccination: Unknown Influenza Vaccination: Yes Past Surgical History Abdominal Surgery: Yes (COLON RESECTION, TL INGUINAL HERNIA REPAIR, VENTRAL HERNIA ) AICD: No Appendectomy: Yes Body Medical Devices: HERNIA MESH Cardiac Surgery: No Cholecystectomy: Yes Ear Surgery: No Endocrine Surgery: No Eye Surgery: No Genitourinary Surgery: No Joint Replacement: No Oral Surgery: Yes (TONSILLECTOMY) Pacemaker: No Thoracic Surgery: No Tonsillectomy: Yes Other Surgery: Yes Social History Alcohol Use: No Tobacco Use: No Substance Use: No Allergies-Medications (Allergen,Severity, Reaction): Coded Allergies: No Known Allergies (Unverified Allergy, Unknown, 04/17/17) Reported Meds & Prescriptions Reported Meds & Active Scripts Active Vesicare (Solifenacin) 5 Mg Tab 5 Mg PO DAILY Reported Lantus Inj (Insulin Glargine) 1,000 Unit/10 Ml Vial 36 Units SQ HS Ropinirole 0.25 Mg Tab 0.25 Mg PO HS Pravastatin 10 Mg Tab 10 Mg PO DAILY Lantus Inj (Insulin Glargine) 1,000 Unit/10 Ml Vial 52 Units SQ DAILY Pantoprazole (Pantoprazole Sodium) 40 Mg Tab 40 Mg PO DAILY Escitalopram (Escitalopram Oxalate) 20 Mg Tab 20 Mg PO DAILY Losartan (Losartan Potassium) 100 Mg Tab 100 Mg PO DAILY Review of Systems Except as stated in HPI: all other systems reviewed are Neg Physical Exam Narrative GENERAL: Well-developed well-nourished no obvious distress, morbidly obese SKIN: Focused skin assessment warm/dry. HEAD: Atraumatic. Normocephalic. EYES: Pupils equal and round. No scleral icterus. No injection or drainage. ENT: No nasal bleeding or discharge. Mucous membranes pink and moist. NECK: Trachea midline. No JVD. CARDIOVASCULAR: Regular rate and rhythm. No murmur appreciated. RESPIRATORY: No accessory muscle use. Clear to auscultation. Breath sounds equal bilaterally. GASTROINTESTINAL: Abdomen soft, non-tender, nondistended. Hepatic and splenic margins not palpable. MUSCULOSKELETAL: No obvious deformities. No clubbing. No cyanosis. No edema. NEUROLOGICAL: Awake and alert and oriented, cranial nerves II through XII grossly intact and nonfocal, 5 out of 5 strength in all 4 extremity's, cerebellar testing negative. PSYCHIATRIC: Appropriate mood and affect; insight and judgment normal. Data Data Last Documented VS Vital Signs Date Time Temp Pulse Resp B/P (MAP) Pulse Ox O2 Delivery O2 Flow Rate FiO2 07/27/17 19:54 80 18 151/89 (109) 97 Room Air 07/27/17 16:56 97.8 Orders Orders Complete Blood Count With Diff (07/27/17 17:20) Comprehensive Metabolic Panel (07/27/17 17:20) Troponin I (07/27/17 17:20) Chest, Single Ap (07/27/17 17:20) Ecg Monitoring (07/27/17 17:20) Iv Access Insert/Monitor (07/27/17 17:20) Oximetry (07/27/17 17:20) Sodium Chloride 0.9% Flush (Ns Flush) (07/27/17 17:30) D-Dimer (07/27/17 17:20) Sodium Chlor 0.9% 1000 Ml Inj (Ns 1000 M (07/27/17 18:00) Bedside Glucose [place].CSUGAR (07/27/17 17:25) Vascular Access Team Consult/P PRN (07/27/17 17:35) Vascular Poc Ultrasound (07/27/17 ) Ct Brain W/O Iv Contrast(Rout) (07/27/17 ) Acetaminophen (Tylenol) (07/27/17 19:30) Prochlorperazine Inj (Compazine Inj) (07/27/17 19:30) Diphenhydramine Inj (Benadryl Inj) (07/27/17 19:30) Place In Observation (07/27/17 ) Vital Signs (Adult) Q4H (07/27/17 20:19) Activity Bed Rest With Brp (07/27/17 ) Auricular Detoxification Specialist / Telemetry [place].Q8H (07/27/17 20:19) Diet Npo (07/28/17 Breakfast) Sodium Chlor 0.9% 1000 Ml Inj (Ns 1000 M (07/27/17 21:00) Sodium Chloride 0.9% Flush (Ns Flush) (07/27/17 21:00) Sodium Chloride 0.9% Flush (Ns Flush) (07/27/17 20:30) Acetaminophen (Tylenol) (07/27/17 20:30) Creatine Kinase (Cpk) (07/27/17 23:30) Creatine Kinase (Cpk) (07/28/17 05:30) Troponin I (07/27/17 23:30) Troponin I (07/28/17 05:30) Basic Metabolic Panel (Bmp) (07/28/17 06:00) Complete Blood Count With Diff (07/28/17 06:00) Electrocardiogram (07/27/17 23:30) Electrocardiogram (07/28/17 05:30) Resp Oxygen César C Titrat 1-4 L (07/27/17 ) Heparin Inj (Heparin Inj) (07/27/17 20:30) Bedside Glucose [place].CSUGAR&03 (07/27/17 20:19) Blood Glucose Goal (Criteria) (07/27/17 20:19) Hypoglycemia 70 Mg/Dl Or < (07/27/17 20:19) Notify Dr: Other (07/27/17 20:19) Dextrose 50% In Sanjay (Vial) Inj (D50w (Vi (07/27/17 20:30) Glucagon Inj (Glucagon Inj) (07/27/17 20:30) Insulin Human Reg Supp Scale (Novolin R (07/27/17 21:00) Echo 2d Comp With Doppler (07/27/17 ) Us Carotid Arteries Comp Bilat (07/27/17 ) Escitalopram (Lexapro) (07/28/17 09:00) Losartan (Cozaar) (07/28/17 09:00) Pantoprazole (Protonix) (07/28/17 09:00) Pravastatin (Pravachol) (07/28/17 09:00) Ropinirole Hcl (Requip) (07/27/17 21:00) Admit Order (Ed Use Only) (07/27/17 ) Labs Laboratory Tests Test 07/27/17 17:30 White Blood Count 9.8 TH/MM3 Red Blood Count 4.68 MIL/MM3 Hemoglobin 14.4 GM/DL Hematocrit 40.9 % Mean Corpuscular Volume 87.6 FL Mean Corpuscular Hemoglobin 30.8 PG Mean Corpuscular Hemoglobin Concent 35.2 % Red Cell Distribution Width 13.0 % Platelet Count 228 TH/MM3 Mean Platelet Volume 7.7 FL Neutrophils (%) (Auto) 60.8 % Lymphocytes (%) (Auto) 27.6 % Monocytes (%) (Auto) 7.2 % Eosinophils (%) (Auto) 3.8 % Basophils (%) (Auto) 0.6 % Neutrophils # (Auto) 6.0 TH/MM3 Lymphocytes # (Auto) 2.7 TH/MM3 Monocytes # (Auto) 0.7 TH/MM3 Eosinophils # (Auto) 0.4 TH/MM3 Basophils # (Auto) 0.1 TH/MM3 CBC Comment DIFF FINAL Differential Comment D-Dimer Quantitative (PE/DVT) 0.32 MG/L FEU Blood Urea Nitrogen 8 MG/DL Creatinine 0.96 MG/DL Random Glucose 166 MG/DL Total Protein 8.0 GM/DL Albumin 4.0 GM/DL Calcium Level 9.4 MG/DL Alkaline Phosphatase 67 U/L Aspartate Amino Transf (AST/SGOT) 46 U/L Alanine Aminotransferase (ALT/SGPT) 73 U/L Total Bilirubin 0.3 MG/DL Sodium Level 139 MEQ/L Potassium Level 3.9 MEQ/L Chloride Level 103 MEQ/L Carbon Dioxide Level 26.5 MEQ/L Anion Gap 10 MEQ/L Estimat Glomerular Filtration Rate 84 ML/MIN Troponin I LESS THAN 0.02 NG/ML MDM Medical Decision Making Medical Screen Exam Complete: Yes Emergency Medical Condition: Yes Differential Diagnosis Headache, head injury, neck injury excluded by Nexus criteria, ACS, UT, electrolyte abnormality, hypoglycemic episode, syncope, neurogenic syncope, vasogenic syncope, cardiogenic syncope Narrative Course Patient room to the emergency department, while he did not check his blood sugar at home he does not think that this is what caused it because he knows with low blood sugar feels like. He does endorse some chest squeezing discomfort, also endorses a mild headache, CT head appears to be negative awaiting final read, patient was offered a Tylenol and he requested "headache cocktail". Patient did have a stress test 2 years ago which she states was positive led to a cardiac catheterization but no stenting, he does not know any further results. He does not have a playground monitor he follows with. Given his chest pain his diabetes and his syncope I think he would do well to have an observation for syncope workup, this was recommended the patient and he is agreeable. Hemodynamically stable discussed with Dr. Corral for floor admission. Diagnosis Primary Impression: Syncope Admitting Information Admitting Physician Requests: Observation Condition: Stable Kristofer Donato MD Jul 27, 2017 17:27
[2017-07-27] MEDS ORDERED: SODIUM CHLORIDE 0.9% FLUSH 10 ML FLUSH IVF PRN (17:30)
[2017-07-27] MEDS: SODIUM CHLOR 0.9% 1000 ML INJ 1,000 ML IV ONE ×2 (17:53→18:38)
[2017-07-27 18:00] VITALS: BP 130/84; PULSE 77; RESP 16; O2SAT 100
--- NOTE | 2017-07-27 18:00 | RADRPT ---
EXAM DATE/TIME: 07/27/2017 17:47 [facility] COMPARISON: CHEST SINGLE AP, April 30, 2017, 22:30. INDICATIONS : Palpitations. MEDICAL HISTORY : Hypertension. Diabetes mellitus type II. SURGICAL HISTORY : None. ENCOUNTER: Initial ACUITY: 1 day PAIN SCORE: 3/10 LOCATION: Bilateral chest FINDINGS: A single view of the chest demonstrates the lungs to be symmetrically aerated without evidence of mas s, infiltrate or effusion. The cardiomediastinal contours are unremarkable. Osseous structures are intact. CONCLUSION: No acute cardiopulmonary process. No change from prior. Westley Stevens MD on July 27, 2017 at 17:57 Board Certified Radiologist. This report was verified electronically.
[2017-07-27 18:06] LABS: BASOPHIL # 0.1 TH/MM3 (0-0.2); BASOPHIL % 0.6 % (0.0-2.0); EOSINOPHIL # 0.4 TH/MM3 (0-0.4); EOSINOPHIL % 3.8 % (0.0-4.0); HEMATOCRIT 40.9 % (39.0-51.0); HEMOGLOBIN 14.4 GM/DL (13.0-17.0); LYMPH % 27.6 % (9.0-44.0); LYMPHOCYTE # 2.7 TH/MM3 (1.0-4.8); MEAN CELL VOLUME 87.6 FL (80.0-100.0); MEAN CORPUSCULAR HEMOGLOBIN 30.8 PG (27.0-34.0); MEAN CORPUSCULAR HGB CONC 35.2 % (32.0-36.0); MEAN PLATELET VOLUME 7.7 FL (7.0-11.0); MONO % 7.2 % (0.0-8.0); MONOCYTE # 0.7 TH/MM3 (0-0.9); NEUT % 60.8 % (16.0-70.0); PLATELET COUNT 228 TH/MM3 (150-450); RED BLOOD COUNT 4.68 MIL/MM3 (4.50-5.90); WHITE BLOOD COUNT 9.8 TH/MM3 (4.0-11.0)
[2017-07-27 18:23] LABS: ALT (GPT) 73 U/L (12-78); AST (GOT) 46 U/L (15-37); BICARBONATE 26.5 MEQ/L (21.0-32.0); BLOOD UREA NITROGEN 8 MG/DL (7-18); CALCIUM 9.4 MG/DL (8.5-10.1); CHLORIDE 103 MEQ/L (98-107); CREATININE 0.96 MG/DL (0.60-1.30); GLOMERULAR FILTRATION RATE 84 ML/MIN (>89); GLUCOSE,RANDOM 166 MG/DL (74-106); SODIUM (NA) 139 MEQ/L (136-145)
[2017-07-27 18:28] LABS: ALKALINE PHOSPHATASE 67 U/L (45-117); TOTAL BILIRUBIN ADULT 0.3 MG/DL (0.2-1.0); TROPONIN I LESS THAN 0.02 NG/ML (0.02-0.05)
[2017-07-27] MEDS ORDERED: PROCHLORPERAZINE INJ 10 MG/2 ML VIAL IVP ONE (19:30)
[2017-07-27] MEDS ORDERED: ACETAMINOPHEN 325 MG TAB PO ONE (19:30)
[2017-07-27] MEDS ORDERED: diphenhydrAMINE HCL 50 MG/ML VIAL IVP ONE (19:30)
[2017-07-27 19:54] VITALS: BP 151/89; PULSE 80; RESP 18; O2SAT 97
--- NOTE | 2017-07-27 20:26 | RADRPT ---
EXAM DATE/TIME: 07/27/2017 20:04 [facility] COMPARISON: CT BRAIN W/O CONTRAST, April 30, 2017, 22:17. INDICATIONS : Cephalgia status post syncopal episode today. RADIATION DOSE: 56.35 CTDIvol (mGy) MEDICAL HISTORY : Hypertension. diabetes SURGICAL HISTORY : Colon resection. Cholecystectomy. ENCOUNTER: Initial ACUITY: 1 day PAIN SCALE: 7/10 LOCATION: Bilateral head TECHNIQUE: Multiple contiguous axial images were obtained of the head. Using automated exposure control and adj ustment of the mA and/or kV according to patient size, radiation dose was kept as low as reasonably a chievable to obtain optimal diagnostic quality images. DICOM format image data is available electro nically for review and comparison. FINDINGS: CEREBRUM: The ventricles are normal for age. No evidence of midline shift, mass lesion, hemorrhage or acute in farction. No extra-axial fluid collections are seen. POSTERIOR FOSSA: The cerebellum and brainstem are intact. The 4th ventricle is midline. The cerebellopontine angle i s unremarkable. EXTRACRANIAL: The visualized portion of the orbits is intact. SKULL: The calvaria is intact. No evidence of skull fracture. CONCLUSION: No acute intracranial abnormality is identified. Hawk Villa MD on July 27, 2017 at 20:23 Board Certified Radiologist. This report was verified electronically.
--- NOTE | 2017-07-27 20:27 | HHI.HP ---
HPI Service [facility] Primary Care Physician Laquita Patel Admission Diagnosis Diagnoses: Travel History International Travel<30 Days: No Contact w/Intl Traveler <30 Da: No Traveled to Known Affected Are: No History of Present Illness 46-year-old male with a past medical history significant for obstructive sleep apnea, diabetes mellitus, hypertension, hyperlipidemia, depression and Carballo' s esophagus presents to the emergency department for the evaluation of syncopal episode 2. The patient reports that he had 2 episodes of dizziness followed by sitting down and loss of consciousness for an undisclosed amount of time. He denies any loss of bowel or bladder and was not confused upon awakening. He reports a chest tightness/pressure that started with the second episode at approximately 3 PM. He endorses an accompanying headache. The chest pain does not radiate. No diaphoresis or shortness of breath. No abdominal pain. No nausea/vomiting/diarrhea. No lateralizing signs/symptoms. No fevers/chills. Review of Systems Except as stated in HPI: all other systems reviewed are Neg Past Family Social History Past Medical History ROB DM HTN HLD Depression Carballo's esophagus Past Surgical History Partial colectomy Dania fundoplication Bilateral inguinal hernia repair Ventral hernia repair Bilateral ankle surgeries Reported Medications Reported Meds & Active Scripts Active Vesicare (Solifenacin) 5 Mg Tab 5 Mg PO DAILY Reported Lantus Inj (Insulin Glargine) 1,000 Unit/10 Ml Vial 36 Units SQ HS Ropinirole 0.25 Mg Tab 0.25 Mg PO HS Pravastatin 10 Mg Tab 10 Mg PO DAILY Lantus Inj (Insulin Glargine) 1,000 Unit/10 Ml Vial 52 Units SQ DAILY Pantoprazole (Pantoprazole Sodium) 40 Mg Tab 40 Mg PO DAILY Escitalopram (Escitalopram Oxalate) 20 Mg Tab 20 Mg PO DAILY Losartan (Losartan Potassium) 100 Mg Tab 100 Mg PO DAILY Allergies: Coded Allergies: No Known Allergies (Unverified Allergy, Unknown, 04/17/17) Family History Both parents with diabetes mellitus Social History Negative for alcohol, tobacco and illicit drugs. Physical Exam Vital Signs Vital Signs Date Time Temp Pulse Resp B/P (MAP) Pulse Ox O2 Delivery O2 Flow Rate FiO2 07/27/17 19:54 80 18 151/89 (109) 97 Room Air 07/27/17 18:00 77 16 130/84 (99) 100 Room Air 07/27/17 17:23 16 99 Room Air 07/27/17 17:11 81 18 134/92 (106) 99 Room Air 07/27/17 17:08 16 98 Room Air 07/27/17 16:56 97.8 78 22 126/61 (82) 97 Physical Exam GENERAL: Obese, male sitting up in bed. SKIN: No rashes, ecchymoses or lesions. Cool and dry. HEAD: Atraumatic. Normocephalic. No temporal or scalp tenderness. EYES: Pupils equal round and reactive. Extraocular motions intact. No scleral icterus. No injection or drainage. ENT: Nose without bleeding, purulent drainage or septal hematoma. Throat without erythema, tonsillar hypertrophy or exudate. Uvula midline. Airway patent. NECK: Trachea midline. No JVD or lymphadenopathy. Supple, nontender, no meningeal signs. CARDIOVASCULAR: Regular rate and rhythm without murmurs, gallops, or rubs. RESPIRATORY: Clear to auscultation. Breath sounds equal bilaterally. No wheezes , rales, or rhonchi. GASTROINTESTINAL: Abdomen soft, non-tender, nondistended. No hepato-splenomegaly , or palpable masses. No guarding. MUSCULOSKELETAL: Extremities without clubbing, cyanosis, or edema. No joint tenderness, effusion, or edema noted. No calf tenderness. NEUROLOGICAL: Awake and alert. Cranial nerves II through XII intact. Motor and sensory grossly within normal limits. Normal speech. Laboratory Laboratory Tests Test 07/27/17 17:30 White Blood Count 9.8 Red Blood Count 4.68 Hemoglobin 14.4 Hematocrit 40.9 Mean Corpuscular Volume 87.6 Mean Corpuscular Hemoglobin 30.8 Mean Corpuscular Hemoglobin Concent 35.2 Red Cell Distribution Width 13.0 Platelet Count 228 Mean Platelet Volume 7.7 Neutrophils (%) (Auto) 60.8 Lymphocytes (%) (Auto) 27.6 Monocytes (%) (Auto) 7.2 Eosinophils (%) (Auto) 3.8 Basophils (%) (Auto) 0.6 Neutrophils # (Auto) 6.0 Lymphocytes # (Auto) 2.7 Monocytes # (Auto) 0.7 Eosinophils # (Auto) 0.4 Basophils # (Auto) 0.1 CBC Comment DIFF FINAL Differential Comment D-Dimer Quantitative (PE/DVT) 0.32 Blood Urea Nitrogen 8 Creatinine 0.96 Random Glucose 166 Total Protein 8.0 Albumin 4.0 Calcium Level 9.4 Alkaline Phosphatase 67 Aspartate Amino Transf (AST/SGOT) 46 Alanine Aminotransferase (ALT/SGPT) 73 Total Bilirubin 0.3 Sodium Level 139 Potassium Level 3.9 Chloride Level 103 Carbon Dioxide Level 26.5 Anion Gap 10 Estimat Glomerular Filtration Rate 84 Troponin I LESS THAN 0.02 Result Diagram: 07/27/17172907/27/171729 Caprini VTE Risk Assessment Caprini VTE Risk Assessment: No/Low Risk (score <= 1) Caprini Risk Assessment Model Point Value = 1 Point Value = 2 Point Value = 3 Point Value = 5 Age 41-60 Minor surgery BMI > 25 kg/m2 Swollen legs Varicose veins or History of unexplained or recurrent spontaneous Oral contraceptives or hormone replacement Sepsis (< 1 month) Serious lung disease, including pneumonia (< 1 month) Abnormal pulmonary function Acute myocardial infarction Congestive heart failure (< 1 month) History of inflammatory bowel disease Medical patient at bed rest Age 61-74 Arthroscopic surgery Major open surgery (> 45 min) Laparoscopic surgery (> 45 min) Malignancy Confined to bed (> 72 hours) Immobilizing plaster cast Central venous access Age >= 75 History of VTE Family history of VTE Factor V Leiden Prothrombin [id number] Lupus anticoagulant Anticardiolipin antibodies Elevated serum homocysteine Heparin-induced thrombocytopenia Other congenital or acquired thrombophilia Stroke (< 1 month) Elective arthroplasty Hip, pelvis, or leg fracture Acute spinal cord injury (< 1 month) Prophylaxis Regimen Total Risk Factor Score Risk Level Prophylaxis Regimen 0-1 Low Early ambulation 2 Moderate Order ONE of the following: *Sequential Compression Device (SCD) *Heparin 5000 units SQ BID 3-4 Higher Order ONE of the following medications: *Heparin 5000 units SQ TID *Enoxaparin/Lovenox 40 mg SQ daily (WT < 150 kg, CrCl > 30 mL/min) *Enoxaparin/Lovenox 30 mg SQ daily (WT < 150 kg, CrCl > 10-29 mL/min) *Enoxaparin/Lovenox 30 mg SQ BID (WT < 150 kg, CrCl > 30 mL/min) AND/OR *Sequential Compression Device (SCD) 5 or more Highest Order ONE of the following medications: *Heparin 5000 units SQ TID (Preferred with Epidurals) *Enoxaparin/Lovenox 40 mg SQ daily (WT < 150 kg, CrCl > 30 mL/min) *Enoxaparin/Lovenox 30 mg SQ daily (WT < 150 kg, CrCl > 10-29 mL/min) *Enoxaparin/Lovenox 30 mg SQ BID (WT < 150 kg, CrCl > 30 mL/min) AND *Sequential Compression Device (SCD) Assessment and Plan Assessment and Plan Assessment/plan: 1. Syncope [address] pending Echo/carotid ultrasound pending 2. Chest pressure/tightness EKG without ST segment elevation/depressions, personally reviewed Initial troponin negative ACS rule out pending; serial troponins/EKGs 3. Diabetes mellitus Holding home Lantus as patient n.p.o. Sliding-scale insulin Monitor blood glucose 4. Hypertension/hyperlipidemia/depression Continue home medications FEN NPO NS at 100 cc/hr Electrolytes: monitor and replete prn Heparin Libby Corral MD Jul 27, 2017 20:27
[2017-07-27] MEDS ORDERED: DEXTROSE 50% IN WATER 50 ML VIAL(D50) IV PUSH PRN (20:30)
[2017-07-27] MEDS ORDERED: SODIUM CHLORIDE 0.9% FLUSH 10 ML FLUSH IV FLUSH PRN (20:30)
[2017-07-27] MEDS ORDERED: GLUCAGON 1 MG/ML VIAL OTHER PRN (20:30)
[2017-07-27] MEDS: HEPARIN SODIUM - SQ 10,000 UNITS/ML VIAL SQ SCH (21:00)
[2017-07-27] MEDS: SODIUM CHLORIDE 0.9% FLUSH 10 ML FLUSH IV FLUSH SCH (21:08)
[2017-07-27] MEDS: SODIUM CHLOR 0.9% 1000 ML INJ 1,000 ML IV SCH (21:23)
[2017-07-27] MEDS: INSULIN NovoLIN REGULAR SUPPLEMENTAL SCALE SQ SCH (21:25)
--- NOTE | 2017-07-27 22:01 | RADRPT ---
EXAM DATE/TIME: 07/27/2017 21:08 [facility] COMPARISON: No previous studies available for comparison. INDICATIONS : Syncope. MEDICAL HISTORY : Hypercholesterolemia. Hypertension. Irritable bowel syndrome. Hyperlipidemia. Colitis. Hiatal hernia. Sleep apnea. Barretts esophagus. Hydrocele. Diabetes. Fatty liver. SURGICAL HISTORY : Tonsillectomy. Colon resection. Inguinal hernia repair. ENCOUNTER: Initial ACUITY: 1 day PAIN SCORE: 2/10 LOCATION: Bilateral neck PEAK SYSTOLIC VELOCITIES (cm/sec): ICA/CCA RATIO: Right: 1.0 Left: 0.6 ICA: Right: 85 Left: 56 CCA: Right: 87 Left: 87 ECA: Right: 84 Left: 69 VERTEBRAL: Right: 68 antegrade Left: 54 antegrade Elevated flow velocities and ICA/CCA ratios have been found to correlate with increased degrees of vessel stenosis, calculated as percentage of diameter relative to a normal segment of distal ICA/CCA FINDINGS: RIGHT CAROTID: No significant stenosis is visualized. The waveforms are within normal limits. LEFT CAROTID: No significant stenosis is visualized. The waveforms are within normal limits. VERTEBRAL ARTERIES: Antegrade flow is seen in both vertebral arteries. MISCELLANEOUS: None. CONCLUSION: 1. No significant stenosis is identified within either internal carotid artery (less than 50% stenosi s). 2. There is antegrade flow in both vertebral arteries. Hawk Villa MD on July 27, 2017 at 21:58 Board Certified Radiologist. This report was verified electronically.
[2017-07-27 22:42] VITALS: BP 121/66; PULSE 73; RESP 16; TEMP 97.9; O2SAT 97
--- NOTE | 2017-07-27 23:53 | EKG ---
Date Performed: 07/27/2017 Time Performed: 17:07:26 PTAGE: 46 years EKG: Sinus rhythm NORMAL ECG Compared to PREVIOUS TRACING , rate has decreased DOCTOR: Blair Chew Interpretating Date/Time 07/27/2017 23:51:49
[2017-07-28] VITALS (8 sets, daily range): BP systolic 125–150; BP diastolic 70–80; PULSE 66–76; RESP 16–20; TEMP 97.9–98.3; O2SAT 95–97
[2017-07-28 01:40] LABS: AUTOMATED NEUTROPHIL # 5.4 TH/MM3 (1.8-7.7); BASOPHIL # 0.1 TH/MM3 (0-0.2); BASOPHIL % 0.9 % (0.0-2.0); EOSINOPHIL # 0.3 TH/MM3 (0-0.4); EOSINOPHIL % 3.4 % (0.0-4.0); HEMATOCRIT 40.3 % (39.0-51.0); HEMOGLOBIN 13.6 GM/DL (13.0-17.0); LYMPH % 34.5 % (9.0-44.0); LYMPHOCYTE # 3.5 TH/MM3 (1.0-4.8); MEAN CORPUSCULAR HEMOGLOBIN 29.4 PG (27.0-34.0); MEAN CORPUSCULAR HGB CONC 33.8 % (32.0-36.0); MEAN PLATELET VOLUME 7.8 FL (7.0-11.0); MONO % 7.5 % (0.0-8.0); MONOCYTE # 0.8 TH/MM3 (0-0.9); NEUT % 53.7 % (16.0-70.0); PLATELET COUNT 208 TH/MM3 (150-450); RED BLOOD COUNT 4.63 MIL/MM3 (4.50-5.90); RED CELL DISTRIBUTION WIDTH 13.2 % (11.6-17.2); WHITE BLOOD COUNT 10.1 TH/MM3 (4.0-11.0)
[2017-07-28 02:01] LABS: BICARBONATE 29.7 MEQ/L (21.0-32.0); CALCIUM 8.9 MG/DL (8.5-10.1); CREATININE 0.79 MG/DL (0.60-1.30)
[2017-07-28 02:05] LABS: TROPONIN I LESS THAN 0.02 NG/ML (0.02-0.05)
[2017-07-28] MEDS: HEPARIN SODIUM - SQ 10,000 UNITS/ML VIAL SQ SCH ×3 (04:29→20:02)
[2017-07-28] MEDS: SODIUM CHLOR 0.9% 1000 ML INJ 1,000 ML IV SCH ×3 (05:37→23:16)
[2017-07-28 07:57] LABS: TROPONIN I LESS THAN 0.02 NG/ML (0.02-0.05)
[2017-07-28] MEDS: INSULIN NovoLIN REGULAR SUPPLEMENTAL SCALE SQ SCH ×4 (08:00→22:19)
[2017-07-28] MEDS: ESCITALOPRAM OXALATE 20 MG TAB PO SCH (08:49)
[2017-07-28] MEDS: PANTOPRAZOLE SOD 40 MG DELAYED RELEASE TAB PO SCH (08:49)
[2017-07-28] MEDS: SODIUM CHLORIDE 0.9% FLUSH 10 ML FLUSH IV FLUSH SCH ×2 (08:49→20:01)
[2017-07-28] MEDS: LOSARTAN 50 MG TAB PO SCH (08:49)
[2017-07-28] MEDS: PRAVASTATIN SOD 10 MG TAB PO SCH (08:49)
--- NOTE | 2017-07-28 12:08 | HHI.PR ---
Subjective Remarks in no acute distress. denies chest pain or sob. no new complaints. Objective Vitals Vital Signs Date Time Temp Pulse Resp B/P (MAP) Pulse Ox O2 Delivery O2 Flow Rate FiO2 07/28/17 08:33 98.3 68 18 125/70 (88) 95 07/28/17 05:37 97.9 72 16 130/80 (97) 96 07/28/17 03:30 66 07/27/17 22:42 97.9 73 16 121/66 (84) 97 07/27/17 22:10 07/27/17 19:54 80 18 151/89 (109) 97 Room Air 07/27/17 18:00 77 16 130/84 (99) 100 Room Air 07/27/17 17:23 16 99 Room Air 07/27/17 17:11 81 18 134/92 (106) 99 Room Air 07/27/17 17:08 16 98 Room Air 07/27/17 16:56 97.8 78 22 126/61 (82) 97 I/O 07/27/17 07/27/17 07/27/17 07/28/17 07/28/17 07/28/17 07:00 15:00 23:00 07:00 15:00 23:00 Intake Total 1000 ml Output Total 300 ml Balance 1000 ml -300 ml Intake IV Total 1000 ml Output Urine Total 300 ml Result Diagram: 07/28/17 0129 07/28/17 0129 Imaging Last Impressions Chest X-Ray 07/27/17 1720 Signed Impressions: Service Date/Time: Thursday, July 27, 2017 17:47 - CONCLUSION: No acute cardiopulmonary process. No change from prior. Westley Stevens MD Head CT 07/27/17 0000 Signed Impressions: Service Date/Time: Thursday, July 27, 2017 20:04 - CONCLUSION: No acute intracranial abnormality is identified. Hawk Villa MD Carotid Artery Ultrasound 07/27/17 0000 Signed Impressions: Service Date/Time: Thursday, July 27, 2017 21:08 - CONCLUSION: 1. No significant stenosis is identified within either internal carotid artery (less than 50%% stenosis). 2. There is antegrade flow in both vertebral arteries. Hawk Villa MD Objective Remarks GENERAL: This is a well-nourished, well-developed patient, in no apparent distress. CARDIOVASCULAR: Regular rate and regular rhythm without murmurs, gallops, or rubs. RESPIRATORY: Clear to auscultation. Breath sounds equal bilaterally. No wheezes , rales, or rhonchi. GASTROINTESTINAL: Abdomen soft, non-tender, nondistended. Normal, active bowel sounds MUSCULOSKELETAL: Extremities without clubbing, cyanosis, or edema. NEURO: Alert & Oriented x4 to person, place, time, situation. Moves all ext x4 Medications and IVs Inpatient Medications Acetaminophen (Tylenol) 500 mg Q4H PRN PO HEADACHE; Start 07/27/17 at 20:30 Dextrose (D50w (Vial) Inj) 50 ml UNSCH PRN IV PUSH HYPOGLYCEMIA-SEE COMMENTS; Start 07/27/17 at 20:30 Diphenhydramine HCl (Benadryl Inj) 25 mg ONCE ONCE IVP Last administered on at 19:48; Start 07/27/17 at 19:30; Stop 07/27/17 at 19:31; Status DC Escitalopram Oxalate (Lexapro) 20 mg DAILY PO Last administered on 07/28/17 08 :49; Start 07/28/17 at 09:00 Glucagon (Glucagon Inj) 1 mg UNSCH PRN OTHER HYPOGLYCEMIA-SEE COMMENTS; Start 07/27/17 at 20:30 Heparin Sodium (Porcine) (Heparin Inj) 5,000 units Q8H SQ ; Start 07/27/17 at 21 :00 Insulin Human Regular (NovoLIN R SUPPLEMENTAL SCALE) 1 ACHS SLIDING SCALE SQ ; Start 07/27/17 at 21:00 Losartan Potassium (Cozaar) 100 mg DAILY PO Last administered on 07/28/17at 08: 49; Start 07/28/17 at 09:00 Pantoprazole Sodium (Protonix) 40 mg DAILY PO Last administered on 07/28/17 08 :49; Start 07/28/17 at 09:00 Pravastatin Sodium (Pravachol) 10 mg DAILY PO Last administered on 07/28/17 08 :49; Start 07/28/17 at 09:00 Prochlorperazine Edisylate (Compazine Inj) 5 mg ONCE ONCE IVP Last administered on 07/27/17 19:48; Start 07/27/17 at 19:30; Stop 07/27/17 at 19:31 ; Status DC Ropinirole HCl (Requip) 0.25 mg HS PO Last administered on 07/27/17at 22:47; Start 07/27/17 at 21:00 Sodium Chloride (NS Flush) 2 ml UNSCH PRN IV FLUSH FLUSH AFTER USING IV ACCESS ; Start 07/27/17 at 20:30 A/P Assessment and Plan A/P 1. Syncope 2 CT head negative and carotid doppler with no significant stenosis. Echo pending 2. Chest pressure/tightness EKG without ST segment elevation/depressions, personally reviewed serial troponin negative will proceed with the stress test. 3. Diabetes mellitus Holding home Lantus as patient n.p.o. Sliding-scale insulin Monitor blood glucose 4. Hypertension/hyperlipidemia/depression Continue home medications Discharge Planning pending stress test and echo. Solo Irene MD Jul 28, 2017 12:08
[2017-07-28] MEDS ORDERED: REGADENOSON INJ 0.4 MG/5 ML SYR ONE (13:12)
--- NOTE | 2017-07-28 14:59 | RADRPT ---
EXAM DATE/TIME: 07/28/2017 13:03 [place] COMPARISON: No previous studies available for comparison. INDICATIONS : Syncope with substernal chest pain. Angina. DOSE: 30 mCi Tc99m Myoview at stress. 10.8 mCi Tc99m Myoview at rest. 0.4 mg Lexiscan STRESS SYMPTOMS: Dyspnea. EJECTION FRACTION: 67% MEDICAL HISTORY : Hyperparathyroidism. Diabetes mellitus type 2. Barrets esophagus. SURGICAL HISTORY : Colectomy hernia repair and bilateral ankles. ENCOUNTER: Initial ACUITY: 1 day PAIN SCALE: 3/10 LOCATION: Substernal chest TECHNIQUE: The patient underwent pharmacologic stress with infusion of prescribed dose. Continuous ECG tracing was monitored during stress. Gated SPECT imaging was performed after stress and conventional SPECT i maging was performed at rest. The examination was performed on a SPECT/CT scanner, both attenuation and non-corrected datasets were reviewed. FINDINGS: DISTRIBUTION: The maximum perfused segment at stress is in the anterior lateral wall. PERFUSION STUDY: The pattern of perfusion at stress is within normal limits. There is a summed stress score of 6. GATED STUDY: There is intact wall motion and thickening without hypokinetic or dyskinetic segments. CONCLUSION: 1. No definite fixed or reversible defect to suggest ischemia. 2. Normal wall motion and calculated ejection fraction RISK CATEGORY: Low (<1% Annual Mortality Rate) Josh Brennan MD on July 28, 2017 at 14:54 Board Certified Radiologist. This report was verified electronically.
--- NOTE | 2017-07-28 17:46 | ECHRPT ---
Indication: Syncope CONCLUSIONS Normal left ventricular size. Wall thickness is measured at the upper limits of normal. The left ventricular systolic function is normal with an estimated ejection fraction in the range of 55-60%. No regional wall motion abnormalities are present. Mild mitral annular calcification is present. Trace mitral valve regurgitation. There is mild tricuspid valve regurgitation. The estimated pulmonary arterial pressure is 28 mmHg. BP: / HR: 69 Rhythm: Sinus MEASUREMENTS (Male / Female) Normal Values Technical Quality:Fair 2D ECHO LV Diastolic Diameter PLAX 5.2 cm 4.2 - 5.9 / 3.9 - 5.3 cm LV Systolic Diameter PLAX 3.7 cm IVS Diastolic Thickness 1.1 cm 0.6 - 1.0 / 0.6 - 0.9 cm LVPW Diastolic Thickness 1.1 cm 0.6 - 1.0 / 0.6 - 0.9 cm LV Relative Wall Thickness 0.4 RV Internal Dim ED PLAX 4.3 cm LVOT Diameter 2.1 cm LA Systolic Diameter LX 4.0 cm 3.0 - 4.0 / 2.7 - 3.8 cm M-MODE Aortic Root Diameter MM 2.3 cm LA Systolic Diameter MM 4.1 cm LA Ao Ratio MM 1.8 AV Cusp Separation MM 1.8 cm DOPPLER AV Peak Velocity 177.0 cm/s AV Peak Gradient 12.5 mmHg LVOT Peak Velocity 115.0 cm/s LVOT Peak Gradient 5.3 mmHg AV Area Cont Eq pk 2.3 cm MV Area PHT 2.9 cm Mitral E Point Velocity 107.0 cm/s Mitral A Point Velocity 93.8 cm/s Mitral E to A Ratio 1.1 LV E' Lateral Velocity 9.6 cm/s Mitral E to LV E' Lateral Ratio 11.2 LV E' Septal Velocity 7.7 cm/s Mitral E to LV E' Septal Ratio 13.9 TR Peak Velocity 213.0 cm/s TR Peak Gradient 18.1 mmHg Right Atrial Pressure 10.0 mmHg Pulmonary Artery Systolic Pressu 28.1 mmHg Right Ventricular Systolic Press 28.1 mmHg FINDINGS LEFT VENTRICLE Normal left ventricular size. Wall thickness is measured at the upper limits of normal. The left ventricular systolic function is normal with an estimated ejection fraction in the range of 55-60%. No regional wall motion abnormalities are present. RIGHT VENTRICLE Normal right ventricular size and systolic function. LEFT ATRIUM The left atrial size is normal. RIGHT ATRIUM The right atrial size is normal. ATRIAL SEPTUM Normal atrial septal thickness without atrial level shunting by limited color doppler interrogation. AORTA The aortic root and proximal ascending aorta are normal in size on limited imaging. MITRAL VALVE Mild mitral annular calcification is present. Trace mitral valve regurgitation. AORTIC VALVE Trileaflet aortic valve. No aortic valve stenosis or regurgitation. TRICUSPID VALVE Structurally normal tricuspid valve. There is mild tricuspid valve regurgitation. The estimated pulmonary arterial pressure is 28 mmHg. PULMONARY VALVE Trivial pulmonary valve regurgitation. VESSELS The inferior vena cava is normal in size. PERICARDIUM No pericardial effusion. Bruno Astudillo MD (Electronically Signed) Final Date:28 July 2017 17:45
[2017-07-28] MEDS: ACETAMINOPHEN 500 MG CPLT PO PRN (19:59)
[2017-07-28] MEDS ORDERED: diphenhydrAMINE HCL 25 MG CAP PO ONE (21:15)
[2017-07-28] MEDS ORDERED: IBUPROFEN 400 MG TAB PO ONE (22:30)
[2017-07-28] MEDS ORDERED: ALUMINUM/MAGNESIUM/SIMETH 30 ML CUP PO ONE (22:30)
[2017-07-29] VITALS (11 sets, daily range): BP systolic 121–151; BP diastolic 62–101; PULSE 57–78; RESP 16–18; TEMP 98–98.6; O2SAT 96–98
[2017-07-29] MEDS: HEPARIN SODIUM - SQ 10,000 UNITS/ML VIAL SQ SCH ×3 (05:46→20:07)
[2017-07-29] MEDS: PANTOPRAZOLE SOD 40 MG DELAYED RELEASE TAB PO SCH (08:30)
[2017-07-29] MEDS: ESCITALOPRAM OXALATE 20 MG TAB PO SCH (08:30)
[2017-07-29] MEDS: PRAVASTATIN SOD 10 MG TAB PO SCH (08:31)
[2017-07-29] MEDS: LOSARTAN 50 MG TAB PO SCH (08:31)
[2017-07-29] MEDS: SODIUM CHLORIDE 0.9% FLUSH 10 ML FLUSH IV FLUSH SCH ×2 (08:32→20:06)
[2017-07-29] MEDS: INSULIN NovoLIN REGULAR SUPPLEMENTAL SCALE SQ SCH ×4 (08:43→21:41)
--- NOTE | 2017-07-29 11:54 | HHI.PR ---
Subjective Remarks Follow up on patient with syncopal episode 2. Patient seen and examined. Patient complains of intermittent left-sided chest pain that he describes as a slight squeezing sensation that radiates through to his back and underneath the left breast with associated dizziness and shortness of breath that lasts for approximately 15 minutes before resolving on its own. Patient states he has had several episodes since his admission into the hospital and have occurred while he has been lying in bed. Patient has a history of Carballo's esophagus and states this chest pain is different. He also complains of tachycardia with standing. Patient reports episode yesterday of syncope that occurred after walking around [employer] shopping and then putting groceries into the car when he developed heart palpitations, dizziness and shortness of breath followed by him sitting down and then losing consciousness for several seconds. He denies any seizure history. He denies any incontinent episode or biting his tongue. He denies any confusion following. He does not endorses severe headache following. Patient then had a similar episode approximately an hour later that occurred while he was walking. He denies any previous history of heart disease. He has never smoked. He is diabetic. His father from an aortic aneurysm. Objective Vitals Vital Signs Date Time Temp Pulse Resp B/P (MAP) Pulse Ox O2 Delivery O2 Flow Rate FiO2 07/29/17 08:36 98.2 63 18 131/80 (97) 07/29/17 08:36 Room Air 07/29/17 08:05 63 07/29/17 04:24 57 07/29/17 03:01 66 18 121/73 (89) 98 07/29/17 00:10 65 07/28/17 23:51 96 21 07/28/17 23:42 98.3 74 18 150/80 (103) 96 07/28/17 20:25 70 07/28/17 19:54 98.1 74 18 136/78 (97) 97 07/28/17 15:39 97.9 76 20 129/73 (91) 96 I/O 07/28/17 07/28/17 07/28/17 07/29/17 07/29/17 07/29/17 07:00 15:00 23:00 07:00 15:00 23:00 Intake Total 1000 ml Output Total 300 ml 600 ml Balance -300 ml -600 ml 1000 ml Intake IV Total 1000 ml Output Urine Total 300 ml 600 ml Result Diagram: 07/28/17 0129 07/28/17 0129 Imaging Last Impressions Myocardial Perfusion Scan Nuc Med 07/28/17 0000 Signed Impressions: Service Date/Time: Friday, July 28, 2017 13:03 - CONCLUSION: 1. No definite fixed or reversible defect to suggest ischemia. 2. Normal wall motion and calculated ejection fraction RISK CATEGORY: Low (<1%% Annual Mortality Rate) Josh Brennan MD Chest X-Ray 07/27/17 1720 Signed Impressions: Service Date/Time: Thursday, July 27, 2017 17:47 - CONCLUSION: No acute cardiopulmonary process. No change from prior. Westley Stevens MD Head CT 07/27/17 0000 Signed Impressions: Service Date/Time: Thursday, July 27, 2017 20:04 - CONCLUSION: No acute intracranial abnormality is identified. Hawk Villa MD Carotid Artery Ultrasound 07/27/17 0000 Signed Impressions: Service Date/Time: Thursday, July 27, 2017 21:08 - CONCLUSION: 1. No significant stenosis is identified within either internal carotid artery (less than 50%% stenosis). 2. There is antegrade flow in both vertebral arteries. Hawk Villa MD Objective Remarks GENERAL: WDWN obese, male patient, INAD. Awake and alert. Sitting up in bed. SKIN: No rashes, ecchymoses or lesions. Cool and dry. HEAD: Atraumatic. Normocephalic. No temporal or scalp tenderness. EYES: Pupils equal round and reactive. Extraocular motions intact. No scleral icterus. No injection or drainage. ENT: Nose without bleeding or purulent drainage. Airway patent. MMM. NECK: Trachea midline. No lymphadenopathy. CARDIOVASCULAR: Regular rate and rhythm without murmurs, gallops, or rubs. RESPIRATORY: Clear to auscultation. Breath sounds equal bilaterally. No wheezes , rales, or rhonchi. GASTROINTESTINAL: Abdomen soft, non-tender, nondistended. No hepato-splenomegaly , or palpable masses. No guarding. MUSCULOSKELETAL: Extremities without clubbing, cyanosis, or edema. No joint tenderness, effusion, or edema noted. No calf tenderness. NEUROLOGICAL: Awake and alert. Cranial nerves II through XII grossly intact. Motor and sensory grossly within normal limits. No focal neurologic finding appreciated. Normal speech. PSYCHIATRIC: Appropriate mood and affect. Normal judgment and insight. Medications and IVs Current Medications Medications (Trade) Dose Ordered Sig/Teddy Route Start Time Stop Time Status Last Admin Sodium Chloride 1,000 ml @ 100 mls/hr Q10H IV 07/27/17 21:00 07/28/17 23:16 (NS Flush) 2 ml BID IV FLUSH 07/27/17 21:00 07/28/17 20:01 (NS Flush) 2 ml UNSCH PRN IV FLUSH 07/27/17 20:30 (Tylenol) 500 mg Q4H PRN PO 07/27/17 20:30 07/28/17 19:59 (Heparin Inj) 5,000 units Q8H SQ 07/27/17 21:00 07/29/17 05:46 (D50w (Vial) Inj) 50 ml UNSCH PRN IV PUSH 07/27/17 20:30 (Glucagon Inj) 1 mg UNSCH PRN OTHER 07/27/17 20:30 (NovoLIN R SUPPLEMENTAL SCALE) 1 ACHS SLIDING SCALE SQ 07/27/17 21:00 07/29/17 08:43 (Lexapro) 20 mg DAILY PO 07/28/17 09:00 07/29/17 08:30 (Cozaar) 100 mg DAILY PO 07/28/17 09:00 07/29/17 08:31 (Protonix) 40 mg DAILY PO 07/28/17 09:00 07/29/17 08:30 (Pravachol) 10 mg DAILY PO 07/28/17 09:00 07/29/17 08:31 (Requip) 0.25 mg HS PO 07/27/17 21:00 07/28/17 20:00 A/P Assessment and Plan 46-year-old male with a past medical history significant for obstructive sleep apnea, diabetes mellitus, hypertension, hyperlipidemia, depression and Carballo' s esophagus presents to the emergency department for the evaluation of syncopal episode 2. 1. Syncope 2 CT head negative and carotid doppler with no significant stenosis. Echo with EF 55-60% obtain EEG Check orthostatic BP measurements with HR. Patient complains of tachycardia with standing, ? POTS Holter monitor check TSH level Consult cardiology for possible arrhythmogenic origin of syncopal episodes 2. Chest pressure/tightness Having episodes of left-sided squeezing chest pain occurring while in bed with associated dizziness, palpitations and shortness of breath EKG without ST segment elevation/depressions Troponin negative x 3 MPS negative Consult cardiology, appreciate recommendations 3. Diabetes mellitus Holding home Lantus Blood sugars fairly well controlled on sliding scale Continue accucheks and Sliding-scale insulin 4. Hypertension/hyperlipidemia/depression Continue home medications 5. Carballo's esophagus Continue on Protonix 40 mg daily 6. Sleep apnea Continue to use home CPAP at night FEN Heart healthy diabetic diet Electrolytes: monitor and replete prn Heparin Discharge Planning Discharge pending completion of further workup and cardiology clearance Yari Kee Jul 29, 2017 11:54
--- NOTE | 2017-07-29 14:58 | MB ---
cc: Blair Chew DO DATE: 07/29/2017 REASON FOR CONSULTATION: Chest pain, syncopal episode. HISTORY OF PRESENT ILLNESS: Dayday Peck is a pleasant 46-year-old male who presented to [facility] Emergency Room for an evaluation of a syncopal episode. The patient states that his blood sugars were a little high in the 220 range and so he took some insulin and waited to go out shopping later that day. He went to [employer] and was feeling better and so he had something small to eat at that time. He walked around [employer] with no problems. When they got outside, they were unloading the cart into the car and it was nothing heavy, a bunch of small things, but he started feeling very dizzy. He felt like his world was spinning. He also felt like his heart was racing at this time. He previously was in [place] [employer] and felt his pulse on his wrist and noted that it was extremely tachycardic but unable to tell me if it was regular or irregular. At that time, he told his he had to sit down and when he sat down, he ended up blacking out for a few seconds. During this, he had no loss of bowel or bladder, no uncontrolled shaking, and no confusion upon awakening. When he woke up, he did have somewhat of a headache. As he started to feel better, they decided to go to another store and similar type episode happened where he needed to sit down and at that time after sitting down, he lost consciousness again. He does not endorse chest pain during the episodes only palpitations and heart racing. He does state that he has had chest pains for some time and when he does get them, he can point to an exact area where it is sharp and stabbing and hurts more with movement, specifically getting up from a chair. PAST MEDICAL HISTORY: 1. Obstructive sleep apnea. 2. Diabetes mellitus. 3. Hypertension. 4. Hyperlipidemia. 5. Depression. 6. Carballo's esophagus. PAST SURGICAL HISTORY: 1. Partial colectomy. 2. Dania fundoplication. 3. Bilateral inguinal hernia repair. 4. Ventral hernia repair. 5. Bilateral ankle surgery. ALLERGIES: NO KNOWN DRUG ALLERGIES. MEDICATIONS: 1. Pravastatin 10 mg daily. 2. Losartan 100 mg daily. 3. Lexapro 20 mg daily. 4. Ropinirole 0.25 mg every night. 5. Protonix 40 mg daily. 6. Lantus 52 units every morning and 36 units every night. 7. VESIcare 5 mg daily. FAMILY HISTORY: Father had a history of abdominal aortic aneurysm for which he ended up dying of complications with infection. SOCIAL HISTORY: Negative for alcohol, tobacco or drug abuse. REVIEW OF SYSTEMS: Fourteen systems were reviewed including osteopathic pertinent positives and negatives above, otherwise negative. PHYSICAL EXAMINATION: VITAL SIGNS: Temperature 98.2, heart rate 63, blood pressure 131/80, respirations 18, pulse oximetry 98% on room air. GENERAL: The patient appears well in no acute distress, alert, awake and oriented x 3. HEENT: Extraocular muscles intact. Mucous membranes moist. NECK: Supple. No JVD at 45 degrees. No carotid bruits heard bilaterally. Carotid upstroke is brisk in nature. HEART: Regular rate and rhythm. Positive first and second heart sounds with no noted murmurs, gallops or rubs. LUNGS: Clear to auscultation bilaterally. No wheezes, rales or rhonchi. ABDOMEN: Soft, nontender, nondistended. No organomegaly noted. EXTREMITIES: Show no clubbing, cyanosis or edema. Femoral and distal pulses intact bilaterally. NEUROLOGIC: No focal deficits. SKIN: Warm, dry and intact. OSTEOPATHIC: No kyphoscoliosis, lordosis or paraspinal tender points. LABORATORY DATA: Hemoglobin 13.6, hematocrit 40.3, platelets 208. Potassium 3.7, BUN 9, creatinine 0.79. Troponin negative x 3. TSH 1.61. Electrocardiogram (07/27/2017 at 1707) sinus rhythm, no acute ST-T wave changes. IMPRESSION: 1. Syncopal episode x 2. 2. Palpitations before syncopal episode, possibly arrhythmogenic syncope. 3. Atypical chest pain more likely musculoskeletal. 4. Hypertension. 5. Obstructive sleep apnea on CPAP. 6. Diabetes mellitus. 7. Ejection fraction 55-60% with no significant valvulopathies. 8. Pharmacologic nuclear stress test with no ischemia noted. RECOMMENDATIONS: 1. Mr. Peck presented with a multitude of symptoms. As far as his chest pain goes, this is extremely atypical presentation of coronary artery disease. Furthermore, he has had a stress test which shows no ischemia. I would not consider further testing at this time. 2. My overall concern is for his syncopal episodes which may be arrhythmogenic in nature. He had palpitations during this and states that he does not get palpitations other than this. During the episodes he has true syncope where he passes out while sitting, which is overall concerning. 3. He has had a 2-D echo that shows a normal ejection fraction with no significant valvulopathies. 4. Carotids show no significant blockage. 5. On telemetry, he has had no arrhythmias at this time. 6. Overall, I believe that he needs further analysis for possible arrhythmia. I did discuss with Dr. Avila and believe that it would be reasonable to do an EP study and after this he needs further rhythm analysis more than a Holter monitor, I would consider placement of a loop recorder due to the significance of his syncope. 7. I told him he should not drive until a diagnosis for his syncopal episodes as well as treatment has happened. Thank you for allowing me to see Dayday Peck. If there are any questions, please do not hesitate to call. Blair Chew, DO VGP/TL , 02:20 PM , 02:56 PM
--- NOTE | 2017-07-29 15:25 | MG ---
cc: Juan J Christy MD, PhD TEST NUMBER: [id number] TECHNIQUE: 17-channel EEG. DESCRIPTION: The background rhythm reveals symmetrical alpha activity, frequency 8 Hz, amplitude 20 microvolts. There is occasional eye movement artifact. No lateralizing features are identified. No epileptiform features are identified. Hyperventilation was done with good effort with no change in background rhythm. Photic results in a normal driving response. INTERPRETATION: Normal EEG. Juan J Christy MD, PhD JAQUELINE/SB , 03:07 PM , 03:24 PM
[2017-07-29] MEDS: ACETAMINOPHEN 500 MG CPLT PO PRN (18:40)
--- NOTE | 2017-07-29 19:11 | MB ---
cc: Margareth Avila MD, Hanscy MD Sayess,Josh Jarvis,Varghese Chew,Delia Clement DATE: 07/29/2017 REASON FOR CONSULTATION: Syncopal episode, tachyarrhythmia. HISTORY OF PRESENT ILLNESS: Mr. Peck is a 46-year-old gentleman with morbid obesity, sleep apnea, high blood pressure, hyperlipidemia and depression who was admitted to the emergency room due to palpitations and syncopal episode. The gentleman referred he was at home, felt like his heart was racing and got dizzy. By this time, he was trying to sit down and passed out. This is the second time he passed out, but he reported multiple episodes of tachyarrhythmia. He was admitted. Echocardiogram during hospitalization indicated a normal ejection fraction. The patient previously was seen by Dr. Chew. I was consulted for evaluation and management. The chart was reviewed. The patient was evaluated. ALLERGIES: NONE. SOCIAL HISTORY: The patient currently denies smoking and drinking. FAMILY HISTORY: Noncontributory to his current medical condition. MEDICATIONS: 1. Lexapro 2. Protonix 3. Lantus 4. Vesicare 5. Losartan. 6. Pravachol. REVIEW OF SYSTEMS: Currently, the patient referred no chest pain, no chest discomfort. No palpitation. No fever. PHYSICAL EXAMINATION: GENERAL: Alert, fully oriented. VITAL SIGNS: His blood pressure is high 142/92, pulse 63, respiratory rate 18. LUNGS: Ventilated. CARDIOVASCULAR: S1, S2. No gallop. No murmur. Distant heart sounds. ABDOMEN: Soft, obese. No mass. No bruits. EXTREMITIES: No edema. CARDIOLOGY STUDIES: An electrocardiogram indicates sinus rhythm, no acute ST and T-wave changes. No preexcitation seen. LABORATORY DATA: Hemoglobin is 13.6, white blood cell 10.1. Potassium 2.7, creatinine 0.79. Troponin less than 0.02. TSH 1.60. ASSESSMENT AND RECOMMENDATIONS: Mr. Peck is currently stable. No chest pain, no chest discomfort. He has recurrent episode of tachyarrhythmia and syncopal episode. No preexcitation seen on telemetry. Usually the gentleman is bradycardic. At this point, my recommendation is electrophysiology study. If necessary, ablation will be performed. If not., a loop recorder would be inserted. The risks, the nature and the benefits of the procedure were clearly stated to him. Risks include pneumothorax, cardiac perforation, stroke, need for open heart surgery and even . The patient understood and agreed to proceed. Procedure will be performed tomorrow morning. MD MARK Markham/ , 06:35 PM , 07:10 PM
[2017-07-29] MEDS ORDERED: diphenhydrAMINE HCL 25 MG CAP PO ONE (21:00)
[2017-07-29] MEDS ORDERED: KETOROLAC TROMETHAMINE 30 MG/ML (IVP) VIAL IV PUSH ONE (21:00)
[2017-07-29 22:51] LABS: PROTHROMBIN TIME - PATIENT 10.3 SEC (9.8-11.6)
[2017-07-30] VITALS: PULSE 60
[2017-07-30 00:04] VITALS: BP 129/80; PULSE 64; RESP 18; O2SAT 96
[2017-07-30 03:30] VITALS: BP 118/79; PULSE 65; RESP 18; O2SAT 94
[2017-07-30 04:00] VITALS: PULSE 59
[2017-07-30] MEDS: HEPARIN SODIUM - SQ 10,000 UNITS/ML VIAL SQ SCH (05:38)
[2017-07-30 06:28] VITALS: TEMP 98.2
[2017-07-30] MEDS ORDERED: ceFAZolin INJ 1,000 MG VIAL ONE (07:12)
[2017-07-30] MEDS ORDERED: MIDAZOLAM HCL 2 MG/2 ML VIAL ONE (07:12)
[2017-07-30] MEDS ORDERED: HEPARIN-NS/PF FLUSH BAG 1,000 ML IV FLUSH ONE (07:19)
[2017-07-30] MEDS: INSULIN NovoLIN REGULAR SUPPLEMENTAL SCALE SQ SCH (08:00)
--- NOTE | 2017-07-30 08:12 | CATHPROC ---
Patient Name: DEBBIE NAVARRO Study #: [id number] Initial MD: Margareth Avila Date of : 1970 Study Date: 07/30/2017 Cardiac Catheterization Report 07/30/2017 8:47:14 AM Financial #: [id number] 1 of 7 Patient Name: DEBBIE NAVARRO Study #: [id number] Initial MD: Margareth Avila Date of : 1970 Study Date: 07/30/2017 Entire Case Report Patient Information Patient Name DEBBIE NAVARRO Date of 1970 Age 46 years Financial # [id number] Gender M AlternateID Lab Number 2 Accession # Room Number Height (in) 69.0 Height (cm) 175.2 BSA 2.36 Weight (lbs) 272.8 Weight (kg) 124.0 Patient Address/Phone Number Home Address [facility] Home Phone Number [facility] [phone] Study Information Study Number Scheduled Start Study Start [id number] 07/30/2017 Jul 30 2017 6:36AM Referring Institution Admit Source Facility Department 1 Other [facility] - Dentist Physician and Clinical Staff Initial Margareth Palacio Crimping Machine Operator Norris Clayton,RT(R) Other Anesthesia, COAL HAULER OPERATOR Recorder Makayla Duenas,FRANCIA Scrub Steph Stewart,RT(R) TECH2 07/30/2017 8:47:14 AM Financial #: [id number] 2 of 7 Patient Name: DEBBIE NAVARRO Study #: [id number] Initial MD: Margareth Avila Date of : 1970 Study Date: 07/30/2017 Equipment Time Skilled Nursing Facility Counselor Description Size Mfg Part Number Used/Scraped [id number] 06:39 [employer] INDUSTRIES PACK, CCL CUSTOM * Used *[id number] 06:39 [employer] PACER VAZQUEZ, LIMB * 2530 *[id number] Used [id number] 06:[address] [employer] MEDICAL BLANKET,WARM AIR CCL * Used *[id number] 07:25 [employer] MEDICAL CATHETER, JSN, QUAD FR 5 Used *[id number] 07:25 [employer] MEDICAL CATHETER, JSN, QUAD FR 5 Used *[id number] 07:25 [employer] MEDICAL CATHETER, JSN, QUAD FR 5 Used *[id number] 07:25 [employer] MEDICAL CATHETER, JSN, QUAD FR 5 Used *[id number] 07:25 [employer] MEDICAL SHEATH, EPS, FR5 FAST CATH FR 5 Used *[id number] 072891 07:25 [employer] MEDICAL SHEATH, EPS, FR5 FAST CATH FR 5 Used *[id number] 123920 07:25 [employer] MEDICAL SHEATH, EPS, FR5 FAST CATH FR 5 Used *[id number] 369980 07:25 [employer] MEDICAL SHEATH, EPS, FR6 FAST CATH FR 6 Used *[id number] Insurance Information Insurance Payor Private Health Insurance Third Libertarian Third Libertarian Number [facility] PLAN History: Allergies Allergy Reaction No Known Allergies History: Risk Factors Hypertension Dyslipidemia Yes Yes Diabetes Labs Hgb (g/dl) Hct (%) RBC (MIL/MM3) WBC (l/cumm) Platelets (thousands) 11.60-17.00 35.00-51.00 4.00-5.90 4.00-11.00 150.00-450.00 13.0 40 4.6 10 208 Glucose (mg/dl) BUN (mg/dl) Creatinine (mg/dl) BUN:Creatinine (1:x) 74.00-106.00 7.00-18.00 0.50-1.30 10.00-20.00 131 9 0.8 11.3 07/30/2017 8:47:14 AM Financial #: [id number] 3 of 7 Patient Name: DEBBIE NAVARRO Study #: [id number] Initial MD: Margareth Avila Date of : 1970 Study Date: 07/30/2017 Na (meq/l) K (meq/l) 136.00-145.00 3.50-5.10 142 3.7 INR (PTT:PT) 0.90-1.10 1 Medication Medication Total Dose (Bolus/Oral) Medication Total Dosage/Unit 1% XYLOCAINE 40 mL Medications (Bolus/Oral) Medication Time Given Dosage/Unit Administered By Reason 1% XYLOCAINE 07/30/2017 7:35:41 AM 20 mL Margareth Avila 20 mL 1% XYLOCAINE given in lab by Margareth Avila in Left Groin via Subcutaneous. 1% XYLOCAINE 07/30/2017 7:40:00 AM 20 mL Margareth Avila 20 mL 1% XYLOCAINE given in lab by Margareth Avila in Right Groin via Subcutaneous. Medication (Drip) Medication Time Given Dosage/Unit Concentration/Unit Diluent (ml) Solution ISUPREL 07/30/2017 7:59:53 AM 4 mcg/min 1 mg 250 NaCl .9 4 mcg/min ISUPREL given in lab by Anesthesia, COAL HAULER OPERATOR via Peripheral IV. Pump/Drip Flow = 60 ml/hr using NaCl .9 with a concentration of 1 mg in 250 ml. Ordered by Margareth Avila. Reason: As per physicians verbal order. 07/30/2017 8:47:14 AM Financial #: [id number] Patient Name: DEBBIE NAVARRO Study #: [id number] Initial MD: Margareth Avila Date of : 1970 Study Date: 07/30/2017 Initial Case Assessment Cardiovascular HR Rhythm NIBP Chest Pain 63 sr 145/96 0 Edema Present Skin color Skin None Normal Warm Dry Circulatory - Right Pulses Dorsalis Pedis 2 Scale (0,1,2,3,4,d) Circulatory - Left Pulses Dorsalis Pedis 2 Scale (0,1,2,3,4,d) Circulatory - Lower Extremities Color Lower Right Color Lower Left Normal Normal Neurological State Oriented to time-place- Alert Moves all extremities person Respiration - General Respiration Rate SpO2 (%) O2 (lpm) (B/min) 20 100 6 Chronological Log Time Study Chronological Log 6:56:46 Patient arrived via Bed. 6:56:48 Patient Name, D.O.B, / Armband Verified By R.N. 6:56:48 Consent signed by the physician and the patient and verified by the Dentist staff. 6:56:48 Pre-op and post- op instructions given; patient acknowledges understanding of instructions. 6:56:49 Verbal Stimulation=2 Physical Stimulation=2 Airway=2 Respiration=2 TOTAL=8. (0=absent, 1=li mited, 2=present) 6:57:00 Patient has been NPO for More than 6Hrs. 6:57:01 Skin Breakdown- none per pt 6:57:07 Patient Warmer Placed on the Table. 6:57:08 Disposable Defibrillator Pads Placed On Patient. 07/30/2017 8:47:14 AM Financial #: [id number] 5 of 7 Patient Name: DEBBIE NAVARRO Study #: [id number] Initial MD: Margareth Avila Date of : 1970 Study Date: 07/30/2017 6:57:10 Mauro Prominences Protected 6:57:11 A # 20 IV was noted in the Hand (left). Grade = 0 0.9ns kvo 6:57:30 History and physical on the chart or being dictated. 7:03:18 [employer] rep present. 7:13:34 Table restraints applied according to hospital policy 7:15:10 Anesthesia at bedside. Assumes care of patient. 7:18:47 Bilateral groins prepped with 2% chlorhexidine, and draped after a 3 minute waiting time. Assessment: Initial Case, HR=63 BPM, Rhythm=sr, OQIC=928/96 mmhg, Chest Pain=0, Edema=None, Col or=Normal, Skin = Warm, Dry Right Pulses: Steven Ped=2 Left Pulses: Steven Ped=2 7:20:57 Lower Right Extremities: Color=Normal Lower Left Extremities: Color=Normal Neurological: State=Alert, Ox3, CRABTREE Respiration: Resp=20 B/min, TxD9=307 %, O2=6 lpm 7:33:20 MD arrived. Time Out. Correct patient, procedure, procedure equipment, site and side verified with physicia n present. Time 7:35:02 concurred by MD, individual staff and COAL HAULER OPERATOR. Time Out #2 - Consents verified, patient in correct position, all results are labled and displa yed, safety precautions 7:35:25 taken, antibiotics administered. Time out concurred by MD, individual staff and COAL HAULER OPERATOR in procedu re 7:35:29 Reference ECG taken 7:35:38 Case Start 7:35:41 20 mL 1% XYLOCAINE given in lab by Margareth Avila in Left Groin via Subcutaneous. 7:36:23 Vascular access was obtained in the Fem Vein (left). 7:36:27 Vascular access was obtained in the Fem Vein (left). 7:36:37 Vascular access was obtained in the Fem Vein (left). 7:37:21 Vascular access was obtained in the Fem Vein (left). 7:38:10 A SHEATH, EPS, FR5 FAST CATH FR 5 was advanced into the Fem Vein (left) using the Percutane ous technique. 7:38:49 A SHEATH, EPS, FR5 FAST CATH FR 5 was advanced into the Fem Vein (left) using the Percutane ous technique. 7:39:01 A SHEATH, EPS, FR5 FAST CATH FR 5 was advanced into the Fem Vein (left) using the Percutane ous technique. 7:40:00 20 mL 1% XYLOCAINE given in lab by Margareth Avila in Right Groin via Subcutaneous. 7:40:28 Vascular access was obtained in the Fem Vein (right). 7:40:44 A SHEATH, EPS, FR6 FAST CATH FR 6 was advanced into the Fem Vein (right) using the Percutan eous technique. A CATHETER, JSN, QUAD FR 5 was advanced vis Fem Vein (left) and placed in the CS. Placement was visually 7:42:17 confirmed under fluoroscopy. A CATHETER, JSN, QUAD FR 5 was advanced vis Fem Vein (left) and placed in the HIS. Placement wa s visually 7:42:30 confirmed under fluoroscopy. A CATHETER, JSN, QUAD FR 5 was advanced vis Fem Vein (left) and placed in the RVA. Placement wa s visually 7:43:09 confirmed under fluoroscopy. A CATHETER, JSN, QUAD FR 5 was advanced vis Fem Vein (right) and placed in the HRA. Placement w as visually 7:43:22 confirmed under fluoroscopy. 7:44:57 EPS in progress 4 mcg/min ISUPREL given in lab by Anesthesia, COAL HAULER OPERATOR via Peripheral IV. Pump/Drip Flow = 60 ml/hr using NaCl .9 with 7:59:53 a concentration of 1 mg in 250 ml. Ordered by Margareth Avila. Reason: As per physicians verbal o rder. 07/30/2017 8:47:14 AM Financial #: [id number] 6 of 7 Patient Name: DEBBIE NAVARRO Study #: [id number] Initial MD: Margareth Avila Date of : 1970 Study Date: 07/30/2017 8:10:50 Isuprel off. EPS complete. 8:11:17 Initial procedure has been completed. Beginning additional procedure. 8:46:58 EP Procedure was performed. EPS only End Study - Contrast Media Used In Study Contrast Total Opened (mL) Total Used (mL) Total Wasted (mL) Unspecified 0 0 0 End Study - Maximum Contrast Load Max Contrast Load (mL) 775.0 End Study - Radiation Exposure Fluoro Time (minutes) 1.0 End Study - Patient Disposition Complications Transferred To Interventional Outcome No Telemetry Bed successful 07/30/2017 8:47:14 AM Financial #: [id number]
[2017-07-30] MEDS ORDERED: LIDOCAINE HCL 2% 20 ML VIAL ONE (08:28)
[2017-07-30] MEDS ORDERED: LORazepam 2 MG/ML VIAL IV PUSH PRN (08:45)
[2017-07-30] MEDS ORDERED: LIDOCAINE HCL 1% 50 ML VIAL INFIL PRN (08:45)
[2017-07-30] MEDS ORDERED: ONDANSETRON HCL 4 MG/2 ML VIAL IV PUSH PRN (08:45)
[2017-07-30] MEDS ORDERED: SODIUM CHLOR 0.9% 250 ML INJ 250 ML IV PRN (08:45)
[2017-07-30] MEDS ORDERED: BACITRACIN OINT 0.9 GM PKT TOP ONE (08:45)
[2017-07-30] MEDS ORDERED: ATROPINE SULFATE 1 MG/ML VIAL IV PUSH PRN (08:45)
[2017-07-30] MEDS ORDERED: oxyCODONE/ACETAMINOPHEN 5 MG/325 MG TAB PO PRN ×2 (08:45)
--- NOTE | 2017-07-30 08:46 | CATHPROC ---
Patient Name: DEBBIE NAVARRO Study #: [id number] Initial MD: Margareth Avila Date of : 1970 Study Date: 07/30/2017 Cardiac Catheterization Report 07/30/2017 8:46:33 AM Financial #: [id number] 1 of 6 Patient Name: DEBBIE NAVARRO Study #: [id number] Initial MD: Margareth Avila Date of : 1970 Study Date: 07/30/2017 Entire Case Report Patient Information Patient Name DEBBIE NAVARRO Date of 1970 Age 46 years Financial # [id number] Gender M AlternateID Lab Number 2 Room Number 299 Height (in) 69.0 Height (cm) 175.2 BSA 2.36 Weight (lbs) 272.8 Weight (kg) 124.0 Patient Address/Phone Number Home Address [facility] Home Phone Number [facility] [phone] Study Information Study Number Admission Scheduled Start Study Start [id number] Jul 27 2017 8:27PM 07/30/2017 Jul 30 2017 8:12AM [facility] Cardiac Pacer/ICD Admit Source Facility Department Other [facility] - Electromechanisms Design Drafter Physician and Clinical Staff Initial Margareth Palacio Sugar Controller Norris Clayton,RT(R) Other Anesthesia, SHIPPING AND RECEIVING MATERIAL HANDLER Recorder Makayla Duenas,FRANCIA Rdzub Steph Stewart,RT(R) TECH2 07/30/2017 8:46:33 AM Financial #: [id number] 2 of 6 Patient Name: DEBBIE ANVARRO Study #: [id number] Initial MD: Margareth Avila Date of : 1970 Study Date: 07/30/2017 Equipment Time Law Firm Consultant Description Size Mfg Part Number Used/Scraped DERMABOND, ADHESIVE SKIN [id number] 08:13 CORDIS/PACER * Used GLUE MINI *[id number]-1103 08:13 [employer] SUTURE, STRIP PLUS 1/2" * Used *[id number] 08:13 MED[employer] PACER VAZQUEZ, LIMB * 2530 *[id number] Used [id number] 08:13 [employer] PACER PACK, PACER CUSTOM * Used *[id number] SUTURE, 0 ETHIBOND [CT1] (CX21D), 8pk SUTURE, 2-0 VICRYL [CT1] ([id number]) SUTURE, 2-0 VICRYL [CT1] (UGB116X) [id number] 08:13 [employer] MEDICAL BLANKET,WARM AIR CCL * Used *[id number] 08:26 [employer] MEDICAL RECORDER, SJM CONFIRM RX [id number] Used [facility] PAD, ELECTROSURGICAL 08:13 * [id number] *[id number] Used [employer] GROUNDING ORANGE 5816-2755 08:13 [employer] WERO. / * Used *[id number] Equipment Model, Serial, Lot Number and Expiration Data Description Model Number Serial Number Lot Number Expiration Date RECORDER, SJM CONFIRM RX [id number] 09-03-2018 Insurance Information Insurance Payor Private Health Insurance Third Constitution Party Third Constitution Party Number [facility] PL[facility] History: Allergies Allergy Reaction No Known Allergies Medication Medication Total Dose (Bolus/Oral) Medication Total Dosage/Unit 2% XYLOCAINE 50 mL 07/30/2017 8:46:33 AM Financial #: [id number] 3 of 6 Patient Name: DEBBIE NAVARRO Study #: [id number] Initial MD: Margareth Avila Date of : 1970 Study Date: 8 Medications (Bolus/Oral) Medication Time Given Dosage/Unit Administered By Reason 2% XYLOCAINE 07/30/2017 8:26:38 AM 50 mL Margareth Avila 50 mL 2% XYLOCAINE given in lab by Margareth Avila in Left upper chest via Subcutaneous. Medication (Drip) Medication Time Given Dosage/Unit Concentration/Unit Diluent (ml) Solution ANCEF 07/30/2017 8:20:35 AM 2 g 2 g ANCEF given in lab by Anesthesia, SHIPPING AND RECEIVING MATERIAL HANDLER via Peripheral IV. Ordered by Margareth Avila. Reason: As pe r physicians verbal order. Final Case Assessment Cardiovascular HR Rhythm NIBP Chest Pain 88 sr 130/77 0 Edema Present Skin color Skin None Normal Warm Dry Circulatory - Right Pulses Dorsalis Pedis Radial 2 1 Scale (0,1,2,3,4,d) Circulatory - Left Pulses Dorsalis Pedis Radial 2 1 Scale (0,1,2,3,4,d) Circulatory - Lower Extremities Color Lower Right Color Lower Left Normal Normal Neurological State Drowsy Moves all extremities Respiration - General Respiration Rate SpO2 (%) O2 (lpm) (B/min) 18 99 6 07/30/2017 8:46:33 AM Financial #: [id number] 4 of 6 Patient Name: DEBBIE NAVARRO Study #: [id number] Initial MD: Margareth Avila Date of : 1970 Study Date: 07/30/2017 Chronological Log Time Study Chronological Log 8:11:20 NOTE: This patient is undergoing an additional procedure while still in the Cardiac Cath La b. 8:11:32 Initial procedure has been completed. Beginning additional procedure. 8:11:56 Sheaths and quads remain in place at this time. 8:13:47 2% CHLORHEXIDINE GLUCONATE WASH AND NASAL SWIPE DONE PRIOR TO PROCEDURE. 8:13:50 Anesthesia remains at bedside. Assuming care of patient. 8:20:00 Left Upper Chest Prepped Times Two. 2 g ANCEF given in lab by Anesthesia, SHIPPING AND RECEIVING MATERIAL HANDLER via Peripheral IV. Ordered by Margareth Avila. Reason: As per physicians 8:20:35 verbal order. Time Out. Correct patient, procedure, procedure equipment, site and side verified with physicia n present. Time 8:26:00 concurred by MD, individual staff and SHIPPING AND RECEIVING MATERIAL HANDLER. Time Out #2 - Consents verified, patient in correct position, all results are labled and displa yed, safety precautions 8:26:21 taken, antibiotics administered. Time out concurred by MD, individual staff and SHIPPING AND RECEIVING MATERIAL HANDLER in procedu re 8:26:23 Reference ECG taken 8:26:36 Case Start 8:26:38 50 mL 2% XYLOCAINE given in lab by Margareth Avila in Left upper chest via Subcutaneous. 8:30:50 Loop Recorder inserted. 8:31:53 Implant Procedure was performed. 8:32:00 A Loop Recorder Inserted . (Single) 8:33:35 All catheter(s) removed without difficulty 8:33:44 Left groin sheaths removed; pressure applied to access sites by DB. 8:34:28 Sterile dressing applied to Left upper chest site by HH. 8:41:35 Right groin sheath removed; pressure applied to access site by HH. 8:42:44 DOCU called. Spoke to Aaron. 8:43:38 Bedside Report will be given. 8:43:59 Implantable Device card placed in patient's chart. Assessment: Final Case, HR=88 BPM, Rhythm=sr, VYRF=911/77 mmhg, Chest Pain=0, Edema=None, Color =Normal, Skin = Warm, Dry Right Pulses: Steven Ped=2, Radial=1 Left Pulses: Steven Ped=2, Radial=1 8:44:25 Lower Right Extremities: Color=Normal Lower Left Extremities: Color=Normal Neurological: State=Drowsy, CRABTREE Respiration: Resp=18 B/min, SpO2=99 %, O2=6 lpm 8:45:23 Case End 8:47:35 Sterile dressing applied to groin sites. Sites WNL. 8:47:40 No case complications noted. 8:55:18 [facility] 07/[facility]/2017 8:46:33 AM Financial #: [id number] 5 of 6 Patient Name: DEBBIE NAVARRO Study #: [id number] Initial MD: Margareth Avila Date of : 1970 Study Date: 07/30/2017 End Study - Contrast Media Used In Study Contrast Total Opened (mL) Total Used (mL) Total Wasted (mL) Unspecified 0 0 0 End Study - Radiation Exposure Fluoro Time (minutes) 0.0 End Study - Patient Disposition Complications Transferred To Interventional Outcome No Telemetry Bed successful 07/30/2017 8:46:33 AM Financial #: [id number] 6 of 6
[2017-07-30] MEDS: SODIUM CHLORIDE 0.9% FLUSH 10 ML FLUSH IV FLUSH SCH (09:00)
--- NOTE | 2017-07-30 09:05 | MP ---
cc: Margareth Avila MD,Blair Jarvis,Varghese Nicole MD DATE OF OPERATION: INDICATIONS FOR PROCEDURE: Mr. Peck is a 46-year-old gentleman man with history of syncope and tachyarrhythmia, referred for loop recorder insertion. Electrophysiology study was negative. The risks, the nature and the benefits of the procedure were clearly said to him. The risks include pneumothorax, cardiac perforation, infection and even . He understood and agreed to proceed. PROCEDURE: As written informed consent was obtained prior to the electrophysiology study, the patient was kept on the table where he was prepped and draped in the usual sterile fashion. Conscious sedation was initiated and maintained throughout the procedure by the anesthesiologist. Once sedation was verified, the left parasternal area was anesthetized with 2% Xylocaine. Using modified Seldinger technique, using a #11 blade scalpel, a 1 cm incision was made. Then the loop was injected under the skin. After adequate sensing of 10, the body was approximated using Dermabond and Steri-Strips. No incident reported. The patient tolerated the procedure. Blood loss minimal. 1. IMPLANTED HARDWARE: The implanted loop recorder is a [employer], model [id number], serial #[id number]. 2. SENSING: R-wave was sensed at 0.28 millivolt. 3. SETTINGS: The device set for maritza under 40, tachy over 160. CONCLUSIONS: Successful loop recorder insertion. RECOMMENDATIONS: The patient is going to be transferred to the recovery room, can be discharged home later today. Margareth Avila MD HS/SB , 08:37 AM , 09:04 AM
--- NOTE | 2017-07-30 09:15 | MA ---
cc: Margareth Avila MD DATE: 07/30/2017 PROCEDURE: Electrophysiology study, CS cannulation, repeat electrophysiology study and Isuprel infusion. INDICATIONS: Mr. Peck is a 46-year-old gentleman, high blood pressure, morbid obesity, syncopal episode, tachyarrhythmia referred for electrophysiology study and possible ablation and possible loop recorder insertion. The risks, the nature and the benefits of the procedure were clearly stated to him. Risks include pneumothorax, cardiac perforation, stroke, need for open heart surgery and even . The patient understood and agreed to proceed. DESCRIPTION OF PROCEDURE: After written informed consent was obtained, the patient was brought to the EP lab where he was prepped and draped in the usual sterile fashion. Conscious sedation was initiated and maintained throughout the procedure by anesthesiologist. Once sedation verified, the right and left inguinal area were anesthetized with 2% Xylocaine. Using modified Seldinger technique, the left femoral vein was cannulated on 3 occasions, 3 guidewires were advanced over the wire, 3- and 5-Malawian Hemaquet were advanced in the right femoral vein and was cannulated on one occasion; 1 guidewire was advanced. Over the wire, 6-Malawian Hemaquet was advanced. Then, under fluoroscopic guidance through the 5- and 6-Malawian Hemaquet, four 5-Malawian Elbert curved quadripolar electrophysiology catheters were advanced and placed around the His, upper right atrium, coronary sinus and right ventricular apex. Basic intervals were measured. They were within normal limits. At this point, atrial pacing protocol was performed. Atrial pacing protocol consisted of decremental atrial pacing as well as program stimulation of 110 cycle length and up to 1 extrastimuli delivered. No tachyarrhythmia was induced. Atrial pacing protocol was performed at the coronary sinus as well as upper right atrium. Then, ventricular pacing protocol was performed. There were no VA conduction at baseline. No VA on Isuprel. Ventricular pacing protocol consists of incremental ventricular pacing, as well as program stimulation with 110 cycle length and up to 3 extrastimuli delivered. No tachyarrhythmia was induced. Isuprel infusion was initiated. Atrial and ventricular pacing protocol was performed. No tachyarrhythmia was induced. Post-isuprel no tachyarrhythmia was induced. At that point, the procedure was complete. All catheters were removed. The patient is going to be kept on the table. Loop recorder will be inserted. No incident report. The patient tolerated the procedure. Blood loss minimal. 1. Electrocardiogram: At baseline, the patient was in sinus. Postprocedure electrocardiogram was unchanged. 2. Basic interval. Base cycle length was 950 milliseconds, AH at 80 and HV of 60 milliseconds. 3. Atrial pacing protocol Wenckebach of the node was around 400 milliseconds, ERP of the node 600, 280 milliseconds. No tachyarrhythmia was induced. Wenckebach on Isuprel was around 280 milliseconds. 4. Ventricular pacing protocol. No tachyarrhythmia was induced. CONCLUSION: Negative electrophysiology study for supraventricular tachyarrhythmia. COMMENT AND RECOMMENDATION: Mr. Peck refers tachyarrhythmia, syncopal episode. At that point, the loop recorder will be inserted. Margareth Avila MD HS/RAINER , 08:20 AM , 09:14 AM
--- NOTE | 2017-07-30 10:23 | HHI.DS ---
Discharge Summary Admission Date Jul 27, 2017 at 20:27 Discharge Date: Jul 30, 2017 Admitting Diagnosis Syncope (1) Syncope ICD Code: R55 - Syncope and collapse (2) Chest pain ICD Code: R07.9 - Chest pain, unspecified (3) Diabetes mellitus ICD Code: E11.9 - Type 2 diabetes mellitus without complications (4) Essential hypertension ICD Code: I10 - Essential (primary) hypertension Procedures Negative electrophysiology study Status post insertion loop recorder 07/30/[address] Avila Brief History - From Admission 46-year-old male with a past medical history significant for obstructive sleep apnea, diabetes mellitus, hypertension, hyperlipidemia, depression and Carballo' s esophagus presents to the emergency department for the evaluation of syncopal episode 2. The patient reports that he had 2 episodes of dizziness followed by sitting down and loss of consciousness for an undisclosed amount of time. He denies any loss of bowel or bladder and was not confused upon awakening. He reports a chest tightness/pressure that started with the second episode at approximately 3 PM. He endorses an accompanying headache. The chest pain does not radiate. No diaphoresis or shortness of breath. No abdominal pain. No nausea/vomiting/diarrhea. No lateralizing signs/symptoms. No fevers/chills. CBC/BMP: 07/28/17 0129 07/28/17 0129 Significant Findings Laboratory Tests Test 07/27/17 17:30 07/28/17 01:29 07/28/17 06:55 07/29/17 22:04 Random Glucose 166 MG/DL (74-106) 131 MG/DL (74-106) Aspartate Amino Transf (AST/SGOT) 46 U/L (15-37) Estimat Glomerular Filtration Rate 84 ML/MIN (>89) Troponin I LESS THAN 0.02 NG/ML LESS THAN 0.02 NG/ML LESS THAN 0.02 NG/ML Imaging Last Impressions Myocardial Perfusion Scan Nuc Med 07/28/17 0000 Signed Impressions: Service Date/Time: Friday, July 28, 2017 13:03 - CONCLUSION: 1. No definite fixed or reversible defect to suggest ischemia. 2. Normal wall motion and calculated ejection fraction RISK CATEGORY: Low (<1%% Annual Mortality Rate) Josh Brennan MD Chest X-Ray 07/27/17 1720 Signed Impressions: Service Date/Time: Thursday, July 27, 2017 17:47 - CONCLUSION: No acute cardiopulmonary process. No change from prior. Westley Stevens MD Head CT 07/27/17 0000 Signed Impressions: Service Date/Time: Thursday, July 27, 2017 20:04 - CONCLUSION: No acute intracranial abnormality is identified. Hawk Villa MD Carotid Artery Ultrasound 07/27/17 0000 Signed Impressions: Service Date/Time: Thursday, July 27, 2017 21:08 - CONCLUSION: 1. No significant stenosis is identified within either internal carotid artery (less than 50%% stenosis). 2. There is antegrade flow in both vertebral arteries. Hawk Villa MD PE at Discharge GENERAL: WDWN obese, male patient, INAD. Awake and alert. Sitting up in bed. SKIN: No rashes, ecchymoses or lesions. Cool and dry. HEAD: Atraumatic. Normocephalic. No temporal or scalp tenderness. EYES: Pupils equal round and reactive. Extraocular motions intact. No scleral icterus. No injection or drainage. ENT: Nose without bleeding or purulent drainage. Airway patent. MMM. NECK: Trachea midline. No lymphadenopathy. CARDIOVASCULAR: Regular rate and rhythm without murmurs, gallops, or rubs. RESPIRATORY: Clear to auscultation. Breath sounds equal bilaterally. No wheezes , rales, or rhonchi. GASTROINTESTINAL: Abdomen soft, non-tender, nondistended. No hepato-splenomegaly , or palpable masses. No guarding. MUSCULOSKELETAL: Extremities without clubbing, cyanosis, or edema. No joint tenderness, effusion, or edema noted. No calf tenderness. NEUROLOGICAL: Awake and alert. Cranial nerves II through XII grossly intact. Motor and sensory grossly within normal limits. No focal neurologic finding appreciated. Normal speech. PSYCHIATRIC: Appropriate mood and affect. Normal judgment and insight. Pt update on day of discharge Patient seen and examined in DOC unit. Patient with no complaints of chest pain or shortness of breath. No fever or chills. No complaints of nausea, vomiting or abdominal pain. Discussed with nursing staff, no acute issues noted. Patient cleared for discharge later today by Dr. Avila. Hospital Course Patient admitted with complaints of atypical chest pain and syncopal episode 2. Patient described having palpitations, dizziness and shortness of breath so severe that he sat down and then lost consciousness for several seconds prior to admission. Echocardiogram was obtained revealing normal ejection fraction and no valvular abnormalities. Carotid ultrasound showed no significant blockage. On telemetry patient had no evidence of arrhythmias. Patient underwent a myocardial perfusion study which was negative. Patient reported left-sided sharp chest pain at rest and cardiology was consulted for further evaluation and felt that the chest pain was extremely atypical for coronary artery disease and no further testing was recommended.. Patient's troponins were negative 3. Due to concern for possible arrhythmogenic nature of patient' s syncopal episodes, patient was seen in consultation by Dr. Avila who performed a electrophysiology study which was negative for supraventricular tachyarrhythmia and inserted a [place] loop recorder for ongoing evaluation. Patient was cleared for discharge from a cardiology standpoint. Patient was instructed not to drive until he had a diagnosis for his syncopal episodes and was cleared to drive by cardiology. Pt Condition on Discharge: Stable Discharge Disposition: Discharge Home Discharge Time: > 30 minutes Discharge Instructions DIET: Follow Instructions for: Heart Healthy Diet, Diabetic Diet Activities you can perform: See Additionl Instruction Other Activity Instructions: NO DRIVING UNTIL CLEARED BY CARDIOLOGY Follow up Referrals: Cardiology, Interventional - 1 Week PCP Follow-up - 1 Week Continued Medications: Escitalopram (Escitalopram) 20 Mg Tab 20 MG PO DAILY, #30 TAB 0 Refills Insulin Glargine Inj (Lantus Inj) 1,000 Unit/10 Ml Vial 52 UNITS SQ DAILY for Blood Sugar Management, VIAL 0 Refills Insulin Glargine Inj (Lantus Inj) 1,000 Unit/10 Ml Vial 36 UNITS SQ HS for Blood Sugar Management, VIAL 0 Refills Losartan (Losartan) 100 Mg Tab 100 MG PO DAILY for Blood Pressure Management, #30 TAB 0 Refills Pantoprazole (Pantoprazole) 40 Mg Tab 40 MG PO DAILY for Reflux, #30 TAB 0 Refills Pravastatin (Pravastatin) 10 Mg Tab 10 MG PO DAILY for Cholesterol Management, #30 TAB 0 Refills Ropinirole (Ropinirole) 0.25 Mg Tab 0.25 MG PO HS, #30 TAB 0 Refills Solifenacin (Vesicare) 5 Mg Tab 5 MG PO DAILY for oab, #30 TAB 11 Refills Yari Kee Jul 30, 2017 10:23
[2017-07-30] MEDS ORDERED: PROPOFOL 200 MG/20 ML AMP IV ONE (12:00)
[2017-07-30] MEDS ORDERED: ESMOLOL HCL 100 MG/10 ML VIAL IV ONE (12:00)
[2017-07-30] MEDS ORDERED: LACTATED RINGER'S 1000 ML IV PRN (23:45)
[2017-07-30] MEDS ORDERED: CHLORHEXIDINE GLUCONATE 2 % 1 PACK (2 CLOTHS) TOPICAL PRN (23:45)
[2017-07-30] MEDS ORDERED: SODIUM CHLORID 0.9% 500 ML IV PRN (23:45)
[2017-07-30] MEDS ORDERED: POVIDONE IODINE 5% (ANTISEPSIS KIT) 4 APPLICATIONS EACH NARE PRN (23:45)
== END 2017-07-30 12:15 | disposition home or self-care (01) ==
LOC: NEPC 16:44 → NEDA 20:27 → NEPHCDU 22:01 → HCIS 07-30 07:42
PROVIDERS: ADMIT Hospitalist; ATTEND Hospitalist
DX: R55 Syncope and collapse (principal); R07.89 Other chest pain; E11.9 Type 2 diabetes mellitus without complications; I10 Essential (primary) hypertension; E78.5 Hyperlipidemia, unspecified; E78.00 Pure hypercholesterolemia, unspecified; K76.0 Fatty (change of) liver, not elsewhere classified; K22.70 Barrett's esophagus without dysplasia; K44.9 Diaphragmatic hernia without obstruction or gangrene; G47.33 Obstructive sleep apnea (adult) (pediatric); R51 Headache; R00.2 Palpitations; E66.01 Morbid (severe) obesity due to excess calories; Z68.41 Body mass index [BMI] 40.0-44.9, adult; F32.9 Major depressive disorder, single episode, unspecified; R42 Dizziness and giddiness; I20.9 Angina pectoris, unspecified
CPT/HCPCS: 00530; 33282; 70450; 71045; 78452; 80048; 80053; 82550; 82948; 84443; 84484; 85025; 85379; 85610; 85730; 93005; 93017; 93306; 93620; 93623; 93880; 95819; 96361; 96372; 96374; 96375; 99285; A9502; C1730; C1764; G0378; J0690; J0780; J1200; J1644; J1885; J2250; J2785; J3010; J7030